=== PATIENT | male | born 1940 | race Native Hawaiian/Other Pacific Islander ===

== ENCOUNTER 2017-11-08 09:36 | Outpatient (CLI) | payer OTHER ==
[~2017-11-08 09:36] MED LIST: ARIP15TA2 OR; CLON0.5T36 PO; LAMICTAL200 MG OR; LORCET 5-325 MG1 TAB PO; LUVOX CR100 MG OR; METF500T PO; PANT40TA PO; PRISTIQ100 MG OR; TRAZ100T OR
== END 2017-11-08 19:43 | disposition home or self-care (01) ==
LOC: RAD 09:36
DX: J18.9 Pneumonia, unspecified organism (principal)

== ENCOUNTER 2018-09-26 03:08 | Outpatient (CLI) | payer OTHER | END 2018-09-26 03:15 | disposition short-term general hospital (02) | LOC: AMB 03:08 | DX: M25.561 Pain in right knee (principal); T79.A21A Traumatic compartment syndrome of right lower extremity, initial encounter; R22.41 Localized swelling, mass and lump, right lower limb; W18.39XA Other fall on same level, initial encounter; Y93.89 Activity, other specified; Y92.018 Other place in single-family (private) house as the place of occurrence of the external cause | CPT/HCPCS: A0425; A0427 ==

== ENCOUNTER 2018-09-26 03:21 | Emergency (ER) | payer OTHER ==
[~2018-09-26] VITALS: Ht 182.9 cm; Wt 124.7 kg
[2018-09-26 03:38] VITALS: TEMP 97.8
[2018-09-26 03:42] LABS: PLATELET COUNT 183 K/uL (142-355)
[2018-09-26 03:50] LABS: POTASSIUM 3.8 mmol/L (3.6-5.2)
[2018-09-26 04:03] LABS: PARTIAL THROMBOPLASTIN TIME 25.5 SECONDS (24.5-33.6)
[2018-09-26 04:16] VITALS: BP 111/64
== END 2018-09-26 04:16 | disposition short-term general hospital (02) ==
LOC: ED 03:21
PROVIDERS: Emergency Medicine Emergency Medical Services
DX: T79.A21A Traumatic compartment syndrome of right lower extremity, initial encounter (principal); W18.39XA Other fall on same level, initial encounter; Y92.89 Other specified places as the place of occurrence of the external cause; I44.5 Left posterior fascicular block
CPT/HCPCS: 80053; 85027; 85610; 85730; 93005; 96360; 96375; 99285; J1170

== ENCOUNTER 2018-10-03 11:30 | Inpatient (IN) | payer OTHER ==
[~2018-10-03] VITALS: Ht 180.3 cm; Wt 110.4 kg
[2018-10-03 16:00] VITALS: BP 137/52; TEMP 98
[2018-10-03 16:47] VITALS: BP 137/52; TEMP 98; Ht 180.3 cm; Wt 110.4 kg
[2018-10-03 17:10] LABS: PLATELET COUNT 329 K/uL (142-355)
[2018-10-03 17:57] LABS: POTASSIUM 4.2 mmol/L (3.6-5.2)
[2018-10-03 20:00] VITALS: BP 150/62; TEMP 98.4
[2018-10-04 08:00] VITALS: BP 152/77; TEMP 98.1
[2018-10-04 20:00] VITALS: BP 128/59; TEMP 97.7
[2018-10-05 08:00] VITALS: BP 155/67; TEMP 97.7
[2018-10-05 20:00] VITALS: BP 107/48; TEMP 98.5
[2018-10-06 08:00] VITALS: BP 136/56; TEMP 97.7
[2018-10-06 20:00] VITALS: BP 120/52; TEMP 97.8
[2018-10-07 08:00] VITALS: BP 145/62; TEMP 98.1
[2018-10-07 20:00] VITALS: BP 114/54; TEMP 98.3
[2018-10-08 08:00] VITALS: BP 153/57; TEMP 98.1
[2018-10-08 20:00] VITALS: BP 125/51; TEMP 97.7
[2018-10-09 08:00] VITALS: BP 133/65; TEMP 98.2
[2018-10-09 20:00] VITALS: BP 129/59; TEMP 98.4
[2018-10-10 08:00] VITALS: BP 151/73; TEMP 97.8
[2018-10-10 20:00] VITALS: BP 133/60; TEMP 98.2
[2018-10-11 08:13] VITALS: BP 130/72; TEMP 97.8
[2018-10-11 20:00] VITALS: BP 116/43; TEMP 97.7
[2018-10-12 08:00] VITALS: BP 133/71; TEMP 98.1
[2018-10-12 20:05] VITALS: BP 125/60; TEMP 98
[2018-10-13 08:09] VITALS: BP 143/60; TEMP 98.1
[2018-10-13 08:48] LABS: PLATELET COUNT 392 K/uL (142-355)
[2018-10-13 08:57] LABS: POTASSIUM 3.8 mmol/L (3.6-5.2)
[2018-10-13 20:00] VITALS: BP 149/65; TEMP 97.8
[2018-10-14 08:00] VITALS: BP 121/61; TEMP 97.6
[2018-10-14 20:00] VITALS: BP 125/66; TEMP 98.1
[2018-10-15 08:00] VITALS: BP 142/82; TEMP 97.7
[2018-10-15 19:54] VITALS: BP 154/61; TEMP 97.8
[2018-10-16 08:00] VITALS: BP 138/59; TEMP 98.2
[2018-10-16 19:56] VITALS: BP 154/58; TEMP 98.1
[2018-10-17 07:00] VITALS: BP 138/65; TEMP 98
[2018-10-17 20:00] VITALS: BP 122/59; TEMP 98.1
[2018-10-18 08:00] VITALS: BP 125/68; TEMP 97.8
[2018-10-18 19:51] VITALS: BP 128/54; TEMP 99.7
[2018-10-19 08:00] VITALS: BP 144/70; TEMP 97.5
== END 2018-10-19 11:20 | disposition home health service (06) | DRG 556 ==
LOC: MED/SURG 11:30
PROVIDERS: Family Medicine; ADMIT Internal Medicine
DX: M62.81 Muscle weakness (generalized) (principal); E66.01 Morbid (severe) obesity due to excess calories; G47.33 Obstructive sleep apnea (adult) (pediatric); E11.9 Type 2 diabetes mellitus without complications; F32.89 Other specified depressive episodes; I73.89 Other specified peripheral vascular diseases; I50.9 Heart failure, unspecified; R62.7 Adult failure to thrive; R26.89 Other abnormalities of gait and mobility
CPT/HCPCS: 36415; 80053; 80061; 81000; 83880; 85027; 85379; 85610; 85730; 87081; 93005; J1650; Q9963

== ENCOUNTER 2018-10-13 08:00 | Outpatient (CLI) | payer OTHER | END 2018-10-13 16:00 | disposition home or self-care (01) | LOC: CT 08:00 | DX: R79.89 Other specified abnormal findings of blood chemistry (principal) ==

== ENCOUNTER 2018-11-14 08:25 | Outpatient (CLI) | payer OTHER | END 2018-11-14 19:44 | disposition home or self-care (01) | LOC: NM 08:25 | DX: I50.89 Other heart failure (principal); I73.89 Other specified peripheral vascular diseases; E11.9 Type 2 diabetes mellitus without complications | CPT/HCPCS: A9500; J2785 ==

== ENCOUNTER 2018-12-09 11:08 | Outpatient (CLI) | payer OTHER ==
[2018-12-09 11:24] LABS: PLATELET COUNT 256 K/uL (142-355)
[2018-12-09 12:29] LABS: POTASSIUM 3.6 mmol/L (3.6-5.2)
== END 2018-12-09 19:27 | disposition home or self-care (01) ==
LOC: LAB 11:08
PROVIDERS: Internal Medicine Cardiovascular Disease
DX: I11.0 Hypertensive heart disease with heart failure (principal); I73.89 Other specified peripheral vascular diseases; I25.10 Atherosclerotic heart disease of native coronary artery without angina pectoris; R06.09 Other forms of dyspnea; E11.9 Type 2 diabetes mellitus without complications
CPT/HCPCS: 80053; 83036; 83880; 85027

== ENCOUNTER 2019-01-02 21:51 | Inpatient (IN) | payer OTHER ==
[~2019-01-02] VITALS: Ht 182.9 cm; Wt 109.9 kg
[2019-01-02 21:56] VITALS: BP 133/76; TEMP 97.8
[2019-01-02 23:53] LABS: PLATELET COUNT 280 K/uL (142-355)
[2019-01-02 23:55] LABS: POTASSIUM 3.6 mmol/L (3.6-5.2)
[2019-01-03] VITALS (8 sets, daily range): BP systolic 112–144; BP diastolic 46–74; TEMP 97.7–98.7; Ht 182.9 cm; Wt 109.9 kg
[2019-01-03] MEDS ORDERED: CLON0.5T36 PO (13:14)
[2019-01-03] MEDS ORDERED: LIPITOR20 MG PO (13:18)
[2019-01-03] MEDS ORDERED: METF500T PO (13:18)
[2019-01-03] MEDS ORDERED: BUSPIRONE10 MG PO (13:18)
[2019-01-03] MEDS ORDERED: FURO20TA67 PO (13:20)
[2019-01-03] MEDS ORDERED: LUMIGAN0.01 % OPTH (13:22)
[2019-01-04 04:00] VITALS: BP 126/62; TEMP 97.9
[2019-01-04 05:15] LABS: PLATELET COUNT 214 K/uL (142-355)
[2019-01-04 08:00] VITALS: BP 141/75; TEMP 98.2
[2019-01-04 12:00] VITALS: BP 123/62; TEMP 97.5
[2019-01-04 16:00] VITALS: BP 123/56; TEMP 98.6
[2019-01-04 20:00] VITALS: BP 123/55; TEMP 98.1
[2019-01-05] VITALS (7 sets, daily range): BP systolic 108–145; BP diastolic 54–70; TEMP 97.3–98.4
[2019-01-06 04:00] VITALS: BP 133/71; TEMP 98.2
[2019-01-06 08:00] VITALS: BP 143/50; TEMP 98.7
[2019-01-06 08:20] LABS: PLATELET COUNT 250 K/uL (142-355)
[2019-01-06 08:21] LABS: POTASSIUM 3.9 mmol/L (3.6-5.2)
[2019-01-06 12:00] VITALS: BP 117/64; TEMP 98.4
[2019-01-06 16:00] VITALS: BP 118/68; TEMP 97.7
[2019-01-06 20:00] VITALS: BP 118/66; TEMP 98.1
[2019-01-07] VITALS: BP 108/68; TEMP 97.7
[2019-01-07 04:00] VITALS: BP 100/67; TEMP 98.3
[2019-01-07 08:00] VITALS: BP 141/72; TEMP 98.1
[2019-01-07 12:00] VITALS: BP 126/66; TEMP 97.9
== END 2019-01-07 09:40 | disposition swing bed (61) | DRG 690 ==
LOC: ED 21:51 → MED/SURG 01-03 02:10
PROVIDERS: Emergency Medicine Emergency Medical Services; ADMIT Family Medicine
DX: N39.0 Urinary tract infection, site not specified (principal); R53.1 Weakness; R53.81 Other malaise; R41.0 Disorientation, unspecified; R41.81 Age-related cognitive decline; I10 Essential (primary) hypertension; E11.9 Type 2 diabetes mellitus without complications; I50.9 Heart failure, unspecified; R26.89 Other abnormalities of gait and mobility; R10.32 Left lower quadrant pain; B96.20 Unspecified Escherichia coli [E. coli] as the cause of diseases classified elsewhere; R29.6 Repeated falls; Z96.651 Presence of right artificial knee joint
CPT/HCPCS: 36415; 80053; 81000; 82948; 85027; 87077; 87086; 87088; 87186; 96365; 96367; 99283; J0744; J1020; J2001

== ENCOUNTER 2019-01-07 09:40 | Inpatient (IN) | payer OTHER ==
[~2019-01-07] VITALS: Ht 180.3 cm; Wt 107.8 kg
[~2019-01-07 09:40] MED LIST changes: +BUSPIRONE10 MG PO; +FURO20TA67 PO; +LIPITOR20 MG PO; +LUMIGAN0.01 % OPTH
[2019-01-07 16:00] VITALS: BP 138/60; TEMP 99.2
[2019-01-07 19:54] VITALS: BP 126/66; TEMP 97.9; Ht 180.3 cm; Wt 107.8 kg
[2019-01-07 20:00] VITALS: BP 119/62; TEMP 97.8
[2019-01-08 08:00] VITALS: BP 143/85; TEMP 97.6
[2019-01-08 20:00] VITALS: BP 111/63; TEMP 97.6
[2019-01-09 19:44] VITALS: BP 106/65; TEMP 98.2
[2019-01-10 08:00] VITALS: BP 128/78; TEMP 97.5
[2019-01-10 20:00] VITALS: BP 114/66; TEMP 98.3
[2019-01-11 08:00] VITALS: BP 103/58; TEMP 97.6
[2019-01-11 20:00] VITALS: BP 126/76; TEMP 97.8
[2019-01-12 08:00] VITALS: BP 137/74; TEMP 97.8
[2019-01-12 20:00] VITALS: BP 116/63; TEMP 97.9
[2019-01-13 08:00] VITALS: BP 123/66; TEMP 97.7
[2019-01-13 20:00] VITALS: BP 107/62; TEMP 97.7
[2019-01-14 08:00] VITALS: BP 142/67; TEMP 98.4
[2019-01-14 17:23] LABS: PLATELET COUNT 367 K/uL (142-355)
[2019-01-14 20:00] VITALS: BP 117/67; TEMP 98
[2019-01-15 08:00] VITALS: BP 118/67; TEMP 97.4
[2019-01-15 20:00] VITALS: BP 113/54; TEMP 98.5
[2019-01-16 08:00] VITALS: BP 115/67; TEMP 97.4
[2019-01-16] MEDS ORDERED: BLOOMIS59 PO (16:45)
== END 2019-01-16 19:25 | disposition short-term general hospital (02) | DRG 948 ==
LOC: MED/SURG 09:40
PROVIDERS: Internal Medicine; ADMIT Family Medicine
DX: R53.1 Weakness (principal); M00.9 Pyogenic arthritis, unspecified; N39.0 Urinary tract infection, site not specified; R62.7 Adult failure to thrive; R26.89 Other abnormalities of gait and mobility; I50.9 Heart failure, unspecified; E11.9 Type 2 diabetes mellitus without complications; E78.49 Other hyperlipidemia; K21.9 Gastro-esophageal reflux disease without esophagitis; H40.89 Other specified glaucoma
CPT/HCPCS: 85027; 85651; 86140; 87081; G0283-GP; J1815

== ENCOUNTER 2019-01-21 15:15 | Inpatient (IN) | payer OTHER ==
[~2019-01-21] VITALS: Ht 180.3 cm; Wt 102.2 kg
[~2019-01-21 15:15] MED LIST changes: +BLOOMIS59 PO
[2019-01-21 18:48] VITALS: BP 120/73; TEMP 97.5; Ht 180.3 cm; Wt 102.2 kg
[2019-01-21 19:03] LABS: POTASSIUM 4.2 mmol/L (3.6-5.2)
[2019-01-21] MEDS ORDERED: METO25TA4 PO (19:48)
[2019-01-21 20:00] VITALS: BP 112/70; TEMP 97.4
[2019-01-21 21:12] LABS: PLATELET COUNT 302 K/uL (142-355)
[2019-01-22 08:00] VITALS: BP 100/61; TEMP 97.9
[2019-01-22 19:49] VITALS: BP 98/54; TEMP 98.5
[2019-01-23 08:24] VITALS: BP 111/62; TEMP 97.9
[2019-01-23 20:00] VITALS: BP 104/53; TEMP 97.9
[2019-01-24 08:00] VITALS: BP 105/63; TEMP 98
[2019-01-24 20:07] VITALS: BP 115/64; TEMP 98.1
[2019-01-25 08:00] VITALS: BP 100/63; TEMP 97.6
[2019-01-25 20:00] VITALS: BP 113/54; TEMP 97.8
[2019-01-26 08:00] VITALS: BP 109/63; TEMP 98.3
[2019-01-26 20:00] VITALS: BP 122/63; TEMP 98
[2019-01-27 08:00] VITALS: BP 108/66; TEMP 98.5
[2019-01-27 19:45] VITALS: BP 97/63; TEMP 97.3
[2019-01-28 08:00] VITALS: BP 128/65; TEMP 98.5
[2019-01-28 15:31] LABS: POTASSIUM 3.5 mmol/L (3.6-5.2)
[2019-01-28 20:15] VITALS: BP 115/63; TEMP 97.4
[2019-01-29 08:00] VITALS: BP 113/61; TEMP 97.7
[2019-01-29 20:00] VITALS: BP 120/69; TEMP 97.7
[2019-01-30 08:00] VITALS: BP 103/63; TEMP 98
[2019-01-30 20:00] VITALS: BP 117/68; TEMP 98.3
[2019-01-31 07:17] VITALS: BP 170/115
[2019-01-31 08:00] VITALS: BP 130/62; TEMP 98.3
[2019-01-31 19:33] VITALS: BP 110/60; TEMP 97.8
[2019-02-01 08:26] VITALS: BP 116/77; TEMP 98.3
[2019-02-01 20:00] VITALS: BP 96/59; TEMP 98.1
[2019-02-02 08:00] VITALS: BP 112/68; TEMP 98.5
[2019-02-02 19:54] VITALS: BP 114/64; TEMP 98.2
[2019-02-03 08:00] VITALS: BP 136/77; TEMP 98.5
[2019-02-03 20:00] VITALS: BP 116/55; TEMP 98.5
[2019-02-04 08:00] VITALS: BP 108/64; TEMP 98.7
[2019-02-04 20:00] VITALS: BP 123/59; TEMP 98.9
[2019-02-05 08:00] VITALS: BP 124/72; TEMP 98.2
[2019-02-05 20:00] VITALS: BP 107/69; TEMP 98.4
[2019-02-06 08:00] VITALS: BP 125/78; TEMP 97.9
[2019-02-06 20:00] VITALS: BP 105/53; TEMP 98.4
[2019-02-07 08:00] VITALS: BP 95/65; TEMP 98.1
[2019-02-07 20:00] VITALS: BP 112/56; TEMP 98
[2019-02-08 08:00] VITALS: BP 110/61; TEMP 98.3
== END 2019-02-08 10:30 | disposition home health service (06) | DRG 947 ==
LOC: MED/SURG 15:15
PROVIDERS: Internal Medicine; ADMIT Family Medicine
DX: R53.1 Weakness (principal); S72.112A Displaced fracture of greater trochanter of left femur, initial encounter for closed fracture; R26.89 Other abnormalities of gait and mobility; R62.7 Adult failure to thrive; E11.9 Type 2 diabetes mellitus without complications; G20 Parkinson's disease; Z91.81 History of falling; F41.8 Other specified anxiety disorders; G47.33 Obstructive sleep apnea (adult) (pediatric); I73.89 Other specified peripheral vascular diseases; M15.8 Other polyosteoarthritis; E78.49 Other hyperlipidemia
CPT/HCPCS: 36415; 80048; 80053; 81000; 85027; 87081; J1815

== ENCOUNTER 2019-02-25 12:52 | Outpatient (CLI) | payer OTHER ==
[~2019-02-25 12:52] MED LIST changes: +FLUV100T PO; -LAMICTAL200 MG OR; +LAMICTAL200 MG PO; -LUVOX CR100 MG OR; +METO25TA4 PO
[2019-02-25] MEDS ORDERED: BUSPIRONE10 MG PO (13:25)
[2019-02-25] MEDS ORDERED: PROBIOTI2 PO (13:26)
== END 2019-02-25 12:59 | disposition short-term general hospital (02) ==
LOC: AMB 12:52
DX: R51 Headache (principal); I48.91 Unspecified atrial fibrillation; R94.31 Abnormal electrocardiogram [ECG] [EKG]; W19.XXXA Unspecified fall, initial encounter; Y92.89 Other specified places as the place of occurrence of the external cause
CPT/HCPCS: A0425; A0427

== ENCOUNTER 2019-02-25 13:00 | Inpatient (IN) | payer OTHER ==
[2019-02-25] VITALS (11 sets, daily range): BP systolic 105–138; BP diastolic 48–83; TEMP 98.3–99.1; Ht 180.3 cm; Wt 104.4 kg
[~2019-02-25] VITALS: Ht 180.3 cm; Wt 104.4 kg
[2019-02-25] MEDS ORDERED: BUSPIRONE10 MG PO (13:25)
[2019-02-25] MEDS ORDERED: PROBIOTI2 PO (13:26)
[2019-02-25 14:29] LABS: PLATELET COUNT 322 K/uL (142-355)
[2019-02-25 14:40] LABS: POTASSIUM 2.9 mmol/L (3.6-5.2)
[2019-02-26] VITALS: BP 114/61; TEMP 99.7
[2019-02-26 04:00] VITALS: BP 127/58; TEMP 98.5
[2019-02-26 05:42] LABS: PLATELET COUNT 274 K/uL (142-355)
[2019-02-26 06:29] LABS: POTASSIUM 3.3 mmol/L (3.6-5.2); SODIUM 139 mmol/L (136-145)
[2019-02-26 08:27] VITALS: BP 117/53; TEMP 98.2
[2019-02-26 12:01] VITALS: BP 111/48; TEMP 98.6
[2019-02-26 16:35] VITALS: BP 101/46; TEMP 97.6
[2019-02-26 20:00] VITALS: BP 122/56; TEMP 98.8
[2019-02-27] VITALS: BP 95/42; TEMP 97.9
[2019-02-27 04:00] VITALS: BP 104/51; TEMP 98.4
[2019-02-27 05:43] LABS: PLATELET COUNT 263 K/uL (142-355)
[2019-02-27 05:51] LABS: POTASSIUM 3.3 mmol/L (3.6-5.2)
[2019-02-27 08:07] VITALS: BP 93/46; TEMP 98.2
[2019-02-27 16:28] VITALS: BP 129/56; TEMP 98.5
[2019-02-27 20:00] VITALS: BP 94/55; TEMP 98.6
[2019-02-28 00:05] VITALS: BP 113/57; TEMP 98.1
[2019-02-28 04:12] VITALS: BP 116/48; TEMP 98
[2019-02-28 08:00] VITALS: BP 123/53; TEMP 98.1
[2019-02-28 12:00] VITALS: BP 131/62; TEMP 98.3
[2019-02-28 20:00] VITALS: BP 127/50; TEMP 98.7
[2019-03-01 00:01] VITALS: BP 126/62; TEMP 98.3
[2019-03-01 04:00] VITALS: BP 142/53; TEMP 98.1
[2019-03-01 08:00] VITALS: BP 115/77; TEMP 98.2
[2019-03-01 20:01] VITALS: BP 102/45; TEMP 98.4
[2019-03-01 23:53] VITALS: BP 126/59; TEMP 98.2
[2019-03-02 03:52] VITALS: BP 135/55; TEMP 98.6
[2019-03-02 20:00] VITALS: BP 115/52; TEMP 98.7
[2019-03-03] VITALS: BP 118/40; TEMP 98.4
[2019-03-03 04:00] VITALS: BP 108/54; TEMP 98.4
[2019-03-03 08:00] VITALS: BP 119/62; TEMP 98
[2019-03-03] MEDS ORDERED: SUCRALFATE1 GM PO (15:55)
[2019-03-03] MEDS ORDERED: METF500T PO (15:55)
[2019-03-03] MEDS ORDERED: SILV1CRE TOP (15:56)
== END 2019-03-03 17:30 | disposition swing bed (61) | DRG 291 ==
LOC: ED 13:00 → MED/SURG 16:45
PROVIDERS: Family Medicine; ADMIT Family Medicine
DX: I11.0 Hypertensive heart disease with heart failure (principal); S72.112A Displaced fracture of greater trochanter of left femur, initial encounter for closed fracture; I48.20 Chronic atrial fibrillation, unspecified; I50.33 Acute on chronic diastolic (congestive) heart failure; E83.42 Hypomagnesemia; R06.89 Other abnormalities of breathing; R06.09 Other forms of dyspnea; E87.6 Hypokalemia; I73.89 Other specified peripheral vascular diseases; R26.89 Other abnormalities of gait and mobility; G47.33 Obstructive sleep apnea (adult) (pediatric); G20 Parkinson's disease; M15.8 Other polyosteoarthritis; F41.8 Other specified anxiety disorders; R62.7 Adult failure to thrive; R53.1 Weakness; E78.49 Other hyperlipidemia
CPT/HCPCS: 36415; 36600; 80053; 81000; 82550; 82805; 83735; 83880; 84484; 85027; 93005; 94760; 96374; 99284; J1815; J1940; J3475; J3490

== ENCOUNTER 2019-03-03 17:30 | Inpatient (IN) | payer OTHER ==
[~2019-03-03] VITALS: Ht 180.3 cm; Wt 100.0 kg
[~2019-03-03 17:30] MED LIST changes: +PROBIOTI2 PO; +SILV1CRE TOP; +SUCRALFATE1 GM PO
[2019-03-03 19:39] LABS: PLATELET COUNT 334 K/uL (142-355)
[2019-03-03 19:54] VITALS: BP 110/59; TEMP 98.3; Ht 180.3 cm; Wt 100.0 kg
[2019-03-03 19:58] LABS: POTASSIUM 4.1 mmol/L (3.6-5.2)
[2019-03-03 20:00] VITALS: BP 108/49; TEMP 98.5
[2019-03-04 09:21] VITALS: BP 125/58; TEMP 97.8
[2019-03-04 20:00] VITALS: BP 138/63; TEMP 97.7
[2019-03-05 08:21] VITALS: BP 106/51; TEMP 98.3
[2019-03-05 20:00] VITALS: BP 104/45; TEMP 98.3
[2019-03-06 08:00] VITALS: BP 126/93; TEMP 98.3
[2019-03-06 20:06] VITALS: BP 96/44; TEMP 98.4
[2019-03-07 20:00] VITALS: BP 104/54; TEMP 98.4
[2019-03-08 08:07] VITALS: BP 97/54; TEMP 98.4
[2019-03-08 20:00] VITALS: BP 104/54; TEMP 98.1
[2019-03-09 08:07] VITALS: BP 137/83; TEMP 98.4
[2019-03-09 20:00] VITALS: BP 91/45; TEMP 97.8
[2019-03-10 08:27] VITALS: BP 106/53; TEMP 98
[2019-03-10 20:00] VITALS: BP 108/56; TEMP 97.6
[2019-03-11 08:00] VITALS: BP 103/52; TEMP 98.3
[2019-03-11 20:10] VITALS: BP 103/54; TEMP 98.2
[2019-03-12 08:00] VITALS: BP 90/56; TEMP 98.4
[2019-03-12 20:00] VITALS: BP 123/69; TEMP 98.1
[2019-03-13 08:00] VITALS: BP 111/60; TEMP 97.8
[2019-03-13 20:00] VITALS: BP 103/59; TEMP 98.3
[2019-03-14 08:00] VITALS: BP 113/62; TEMP 97.8
[2019-03-14 20:11] VITALS: BP 119/58; TEMP 97.8
[2019-03-15 08:00] VITALS: BP 118/74; TEMP 98
[2019-03-15 19:56] VITALS: BP 111/64; TEMP 98.3
[2019-03-16 08:00] VITALS: BP 99/56; TEMP 98.3
[2019-03-16 20:26] VITALS: BP 107/58; TEMP 98
[2019-03-17 08:22] VITALS: BP 125/53; TEMP 98.6
[2019-03-17 20:00] VITALS: BP 109/57; TEMP 98.1
[2019-03-18 08:00] VITALS: BP 115/58; TEMP 98.3
[2019-03-18 20:00] VITALS: BP 108/48; TEMP 98.5
[2019-03-19 08:00] VITALS: BP 107/73; TEMP 98
[2019-03-19 20:00] VITALS: BP 122/59; TEMP 97.9
[2019-03-20 08:00] VITALS: BP 121/67; TEMP 98.1
[2019-03-20 20:00] VITALS: BP 118/64; TEMP 98.4
[2019-03-21 08:00] VITALS: BP 116/62; TEMP 97.9
[2019-03-21 20:00] VITALS: BP 100/50; BP 125/59; TEMP 97.1; TEMP 97.8
[2019-03-22 08:00] VITALS: BP 106/46; TEMP 98.6
[2019-03-22 20:00] VITALS: BP 100/50; TEMP 97.1
[2019-03-23 08:00] VITALS: BP 102/50; TEMP 97.9
[2019-03-23 20:00] VITALS: BP 135/69; TEMP 98.3
[2019-03-24 08:09] VITALS: BP 108/53; TEMP 98.2
[2019-03-24 20:24] VITALS: BP 105/53; TEMP 98.4
== END 2019-03-25 12:47 | disposition home or self-care (01) | DRG 555 ==
LOC: MED/SURG 17:30
PROVIDERS: ADMIT Internal Medicine
DX: M62.81 Muscle weakness (generalized) (principal); S72.112A Displaced fracture of greater trochanter of left femur, initial encounter for closed fracture; R26.81 Unsteadiness on feet; R62.7 Adult failure to thrive; Z91.81 History of falling; E11.9 Type 2 diabetes mellitus without complications; I10 Essential (primary) hypertension; E78.49 Other hyperlipidemia; K21.9 Gastro-esophageal reflux disease without esophagitis; G20 Parkinson's disease; I73.89 Other specified peripheral vascular diseases; G47.33 Obstructive sleep apnea (adult) (pediatric); E66.8 Other obesity; M15.8 Other polyosteoarthritis
CPT/HCPCS: 80053; 81000; 85027; 87015; 87045; 87081; 87324; 87449; 87899

== ENCOUNTER 2020-03-04 11:07 | Outpatient (CLI) | payer OTHER ==
[2020-03-04 11:20] LABS: PLATELET COUNT 381 K/uL (142-355)
[2020-03-04 11:33] LABS: POTASSIUM 4.3 mmol/L (3.6-5.2)
== END 2020-03-04 21:13 | disposition home or self-care (01) ==
LOC: LAB 11:07
PROVIDERS: ATTEND Nurse Practitioner
DX: E11.42 Type 2 diabetes mellitus with diabetic polyneuropathy (principal); E78.49 Other hyperlipidemia; Z79.899 Other long term (current) drug therapy
CPT/HCPCS: 80053; 80061; 83036; 85027

== ENCOUNTER 2020-03-31 00:52 | Emergency (ER) | payer OTHER ==
[~2020-03-31] VITALS: Ht 180.3 cm; Wt 99.8 kg
[2020-03-31 02:50] VITALS: BP 126/55; TEMP 98.2
== END 2020-03-31 02:50 | disposition home or self-care (01) ==
LOC: ED 00:52
PROC: 0HQ0XZZ Repair Scalp Skin, External Approach (ICD-10-PCS; principal; 2020-03-31)
DX: S01.01XA Laceration without foreign body of scalp, initial encounter (principal); W05.0XXA Fall from non-moving wheelchair, initial encounter; Y93.F1 Activity, caregiving, bathing; Y92.89 Other specified places as the place of occurrence of the external cause
CPT/HCPCS: 90471; 90715; 99283

== ENCOUNTER 2020-04-05 16:23 | Outpatient (CLI) | payer OTHER | END 2020-04-05 22:47 | disposition home or self-care (01) | LOC: RAD 16:23 | PROVIDERS: ATTEND Nurse Practitioner Family | DX: R06.02 Shortness of breath (principal); R05 Cough ==

== ENCOUNTER 2020-07-09 10:31 | Outpatient (CLI) | payer OTHER ==
[2020-07-10] MEDS ORDERED: METFORMIN HYDR750 MG PO (21:57)
== END 2020-07-09 22:40 | disposition home or self-care (01) ==
LOC: LAB 10:31
PROVIDERS: ATTEND Nurse Practitioner
DX: R53.83 Other fatigue (principal); R43.2 Parageusia; E55.9 Vitamin D deficiency, unspecified; E53.8 Deficiency of other specified B group vitamins
CPT/HCPCS: 82306; 82525; 82607; 83735; 84630

== ENCOUNTER 2020-07-10 20:32 | Inpatient (IN) | payer OTHER ==
[2020-07-10] VITALS (7 sets, daily range): BP systolic 102–126; BP diastolic 58–74; TEMP 99.1
[~2020-07-10] VITALS: Ht 180.3 cm; Wt 97.6 kg
[2020-07-10 21:43] LABS: PLATELET COUNT 333 K/uL (142-355)
[2020-07-10 21:50] LABS: POTASSIUM 3.8 mmol/L (3.6-5.2); SODIUM 131 mmol/L (136-145)
[2020-07-10] MEDS ORDERED: METFORMIN HYDR750 MG PO (21:57)
[2020-07-11] VITALS (8 sets, daily range): BP systolic 110–134; BP diastolic 58–67; TEMP 98.1–99.4; Ht 180.3 cm; Wt 97.6 kg
--- NOTE | 2020-07-11 00:45 | NUR ---
PATIENT ADMITTED TO ROOM# 1108 VIA STRETCHER FROM THE ER. PATIENT ORIENTED TO ROOM AND CALL SYSTEM AND VERBALIZES UNDERSTANDING OF ALL INFO GIVEN. PATIENT IS ALERT AND ORIENTED X 3, AND STATES HE NORMALLY AMBULATES AT HOME WITH A CANE OR WALKER. PATIENT IS EXTREMELY WEAK AT THIS TIME AND UNABLE TO AMBULATE AT THIS TIME. ER PLACED A 14 UGANDAN KAN CATHETER AND PATIENT IS TOLERATING CATHETER WELL AND STATES HE UNDERSTANDS HE IS TO WEAK TO GET OOB ON HIS OWN AND VERBALIZES HE WILL CALL FOR ASSISTANCE. CALL LIGHT WITHIN REACH. WILL CONTINUE TO MONITOR. PATIENTS DAUGHTER JOHN IS HIS CONTACT AND HER # IS [phone].
[2020-07-11 07:16] LABS: PLATELET COUNT 284 K/uL (142-355)
[2020-07-11 07:54] LABS: POTASSIUM 3.7 mmol/L (3.6-5.2)
--- NOTE | 2020-07-11 09:50 | NUR ---
REC'D CALL FROM [facility] IN LAB WHO REPORTS PT'S BLOOD CULTURES X2 PRELIMINARIES ARE BOTH POSITIVE.
--- NOTE | 2020-07-11 13:51 | NUR ---
NURSE CALLED RT TO ASSESS PT. PT WHEEZING IN UPPER RIGHT LOBE. RT ADMINISTERED NEB AT THIS TIME.
--- NOTE | 2020-07-11 15:31 | NUR ---
REPORTED TO DR. CRUZ PT'S LUNG SOUNDS AND WHEEZING, DR. CRUZ ORDERS TO PLACE PT ON O2 AT THIS TIME AND CONTINUE TO MONITOR PT'S WORK OF BREATHING AND LUNG SOUNDS, AND O2 SAT, NO FURTHER ORDERS AT THIS TIME
--- NOTE | 2020-07-11 15:40 | NUR ---
OXYGEN PLACED ON PT AT THIS TIME AT 2L NC, NONLABORED BREATHING NOTED, NAD NOTED, WILL CONTINUE TO MONITOR
--- NOTE | 2020-07-11 15:46 | NUR ---
PT NOTED TO BE LAYING IN BED TALKING.
--- NOTE | 2020-07-11 16:32 | NUR ---
RT ASSESSED PT. UPON ARRIVAL IN PT ROOM, PT WAS TALKING. PT STATES HE CAN BREATH EASIER FROM NEB TX EARLIER. NO INCREASED WOB AT THIS TIME. BBS FINDING ARE: RUL-WHEEZE, ALL OTHER LUNG DIANE WERE CLEAR/DIMINISHED. PT IS ON 2LPM NC. SPO2 AT 95% HR: 105-118. PT IS NOTED WITH A HEART HISTORY. PRN NEB OF ALBUTEROL/ATROVENT NOT GIVEN AT THIS TIME. WILL CONTINUE TO MONITOR.
--- NOTE | 2020-07-11 18:21 | NUR ---
PT NOTED TO HAVE 14FR KAN IN PLACE WITH 600 CC MYRTLE COLOR URINE OUT THIS SHIFT WITH 1112 CC ORAL INTAKE AND [address] CRUZ NOTIFIED.
--- NOTE | 2020-07-11 18:28 | NUR ---
ORDERS REC'D TO JUST MONITOR PT AT THIS TIME AND THROUGH THE NIGHT WITH THE IVF GOING AT 75ML/HR
--- NOTE | 2020-07-11 20:10 | NUR ---
PT AWAKE LAYING IN BED WITH NO ACUTE DISTRESS NOTED, RESP RATE NONLABORED, O2 AT 2LPM VIA NC, IV INTACT TO L FA WITH NS INFUSING AT 75ML/HR, TELEMETRY IN USE WITH RATE OF 100, DENIES ANY NEEDS AT THIS TIME, TALKATIVE WITH ENVIRONMENTAL TECHNICAL OFFICERLUCIUS DRAINING TO BEDSIDE. ENCOURAGED TO CALL NEEED, WILL MONITOR, RAILS UP, BED IN LOW POSITION, CALL LIGHT IN REACH.
--- NOTE | 2020-07-11 21:16 | NUR ---
SPOKE WITH DR. TAMAYO IN ER ABOUT PT'S BREATHING BEING DIFFERENT FROM ADMIT(MECHANICAL TECH NURSE THAT ADMITTED PT WORKING WITH PLUG STITCHER SHANE), WET COUGH, LUNGS DIMINISHED WITH WHEEZING NOTED. INFORMED DR THAT FLUID HAS BEEN INFUSING AT 75ML/HR AND ON DAY SHIFT PT INTAKE 2000 OUTPUT 600 VIA KAN. NEW ORDER FOR LASIX 40MG SLOW IVP X 1 DOSE NOW T.O. R&V
--- NOTE | 2020-07-11 22:50 | NUR ---
NOTE APPROX 300-400ML URINE OUTPUT IN KAN CATH BAG SINCE LASIX GIVEN. WILL MONITOR CLOSELY.
[2020-07-12] VITALS (7 sets, daily range): BP systolic 100–131; BP diastolic 54–65; TEMP 97.5–98.6
--- NOTE | 2020-07-12 00:06 | NUR ---
PT RESTING QUIETLY IN BED WITH EYES CLOSED, NO S/S OF PAIN OR DISTRESS NOTED, RESP RATE NONLABORED, O2 AT 2LPM VIA NC, TELEMETRY IN USE WITH RATE OF 86, IV INTACT WITH FLUID ONGOING, KAN PATENT DRAINING TO BEDSIDE, WILL MONITOR CLOSELY, RAILS UP, BED IN LOW POSITION, CALL LIGHT IN REACH.
--- NOTE | 2020-07-12 03:20 | NUR ---
PT RESTING IN BED WITH EYES CLOSED, NO S/S OF PAIN OR DISTRESS NOTED, RESP RATE NONLABORED, O2 IN USE VIA NC, TELEMETRY IN USE WITH RATE 80s-90s, KAN PATENT DRAINING TO BEDSIDE, IV INTACT TO L FA WITH NS ONGOING. NOTE PT HAS TREMORS OF HANDS AT TIMES WHEN AWAKE BUT ALSO NOTED MOVEMENTS OF MOUTH AND FEET WHILE PT APPEARS TO BE SLEEPING(HX PARKINSON'S). WILL MONITOR CLOSELY, RAILS UP X3, BED IN LOW POSITION, CALL LIGHT IN REACH.
--- NOTE | 2020-07-12 04:45 | NUR ---
PT AWAKE CALLED DIE BARBER LIGHT WANTING TO ASK HIS NURSE A QUESTION. ENTERED TO FIND PT ALERT AND ORIENTED SITTING UP IN BED WITH NO ACUTE DISTRESS NOTED, IV INTACT, KAN PATENT DRAINING TO BEDSIDE, TELEMETRY IN USE. PT WANTED TO KNOW IF EDUCATIONAL PSYCHOLOGY TEACHER GOT HIM ANYTHING FOR SLEEP LAST NIGHT(OTHER THAN NORMAL HOME MEDS), INFORMED PT THAT EDUCATIONAL PSYCHOLOGY TEACHER RETURNED TO CHECK ON PT AFTER HE ASKED FOR SOMETHING EXTRA TO HELP HIM SLEEP AND PT WAS RESTING WITH EYES CLOSED. PT TALKATIVE WITH EDUCATIONAL PSYCHOLOGY TEACHER AND INFORMED PT THAT HE HAS SLEEP 4-5 HOURS DURING NIGHT PT REPLIES THAT HE THOUGHT HE ONLY SLEPT 3 HOURS. TALKS ABOUT R SIDE OF HIS MOUTH BOTHERING HIM BUT WHEN EDUCATIONAL PSYCHOLOGY TEACHER OFFERED TO BRING PT TYLENOL PRN PT STATES HE WILL NEED IT IN A FEW HOURS. ENCOURAGED PT TO CALL FOR PRN PAIN MEDICATION, PT ACKNOWLEDGES UNDERSTANDING. RAILS UP X3, BED IN LOW POSITION, CALL LIGHT IN REACH.
[2020-07-12 05:26] LABS: PLATELET COUNT 275 K/uL (142-355)
[2020-07-12 05:28] LABS: POTASSIUM 3.1 mmol/L (3.6-5.2)
--- NOTE | 2020-07-12 06:35 | NUR ---
RESTING WITH EYES CLOSED, NO S/S OF PAIN OR DISTRESS NOTED, WILL MONITOR CLOSELY, RAILS UP X3, BED IN LOW POSITION, CALL LIGHT IN REACH.
--- NOTE | 2020-07-12 23:35 | NUR ---
PATIENT HAD A CHANGE IN HIS HEART RHYTHEM. PATIENT DENIED ANY PAIN IN HIS CHEST OR ARM OR ABDOMEN. PATIENT DENIED ANY NAUSEA. I COPPIED THE STRIP AND WENT TO SPEAK TO THE ER DR TAMAYO. THE DR SAID, "ITS A -FIB WITH A FEW PVCS." AND "JUST TO MONITOR HIM." MD DID NOT ORDER ANY ADDITIONAL TESTS OR LAB WORK AT THIS TIME.
[2020-07-13 03:58] VITALS: BP 121/66; TEMP 97.6
[2020-07-13 05:29] LABS: POTASSIUM 3.3 mmol/L (3.6-5.2)
[2020-07-13 05:39] LABS: PLATELET COUNT 295 K/uL (142-355)
[2020-07-13 08:00] VITALS: BP 120/51; TEMP 97.7
[2020-07-13 12:00] VITALS: BP 124/67; TEMP 98.6
--- NOTE | 2020-07-13 14:00 | NUR ---
ATTEMPTED TO CALL PT TO ASSIST WITH TRANSFER OF PATIENT TO CHAIR. PT DID NOT ANSWER.
--- NOTE | 2020-07-13 14:30 | NUR ---
SNAILER ATTEMPTED TO CALL PT. PT DID NOT ANSWER.
--- NOTE | 2020-07-13 15:13 | NUR ---
ATTEMPTED TO CALL PT AGAIN. WAS FORWARDED TO OUTPATIENT THERAPY. THEY SIAD THEY WOULD CALL THERAPY.
[2020-07-13 16:02] VITALS: BP 126/64; TEMP 98.8
[2020-07-13 19:32] VITALS: BP 131/65; TEMP 98.1
--- NOTE | 2020-07-13 22:15 | NUR ---
PT SITTING UP IN HIGH-FOWLERS POSITION AT THIS TIME WITH BED IN LOWEST POSITION WATCHING TV WITH SIDE RAILS UP TIMES TWO WITH 2LPM OF NC ON AND INTACT. PT EXPERIENCING BILATERAL WHEEZING TO THE UPPER TWO LOBES AT THIS TIME. REWRAPPED DRESSING ON RIGHT FOREARM SKIN TEAR AT THIS TIME AND USED NON-ADHESIVE TELFA DRESSING PADS. SUPERVISOR MONEY ROOM NOTES BILATERAL LOWER EXTEREMITY EDEMA AT THIS TIME THAT IS WARM TO TOUCH. PT SEEMS TO BE IN NO DISTRESS AT THIS TIME. NO NAD NOTED. PM MEDS ALSO GIVEN AT THIS TIME. 22 G IN THE LEFT FOREARM STARTED AT THIS TIME. IV FLUSHES WELL AND AND NO EDEMA OR ERRTHYEMA NOTED TO THE SITE.
[2020-07-13 23:39] VITALS: BP 128/70; TEMP 99.4
[2020-07-14 04:00] VITALS: BP 125/70; TEMP 97.6
[2020-07-14 05:36] LABS: PLATELET COUNT 344 K/uL (142-355)
[2020-07-14 05:48] LABS: POTASSIUM 4.1 mmol/L (3.6-5.2)
[2020-07-14 08:00] VITALS: BP 141/70; TEMP 98.6
[2020-07-14 12:00] VITALS: BP 112/63; TEMP 98.2
[2020-07-14 16:01] VITALS: BP 112/54; TEMP 98.3
[2020-07-14 20:02] VITALS: BP 133/80; TEMP 98.5
--- NOTE | 2020-07-14 22:05 | NUR ---
PATIENT RESTING QUIETLY AT THIS TIME WATCHING TV, DENIES ANY COMPLAINTS OR REQUESTS AT THIS TIME. NO ACUTE DISTRESS NOTED AT THIS TIME. CALL LIGHT WITHIN REACH. WILL CONTINUE TO MONITOR.
[2020-07-15] VITALS: BP 110/61; TEMP 99.1
--- NOTE | 2020-07-15 01:21 | NUR ---
PATIENT TURNED TO HIS LEFT SIDE FROM HIS BACK WITHOUT DIFFICULTY. PATIENT RESTING QUIETLY, NO ACUTE DISTRESS NOTED AT THIS TIME. CALL LIGHT WITHIN REACH. WILL CONTINUE TO MONITOR.
[2020-07-15 04:00] VITALS: BP 109/66; TEMP 97.8
[2020-07-15 05:23] LABS: POTASSIUM 4.2 mmol/L (3.6-5.2)
[2020-07-15 05:25] LABS: PLATELET COUNT 336 K/uL (142-355)
[2020-07-15 08:00] VITALS: BP 112/61; TEMP 98.2
--- NOTE | 2020-07-15 10:06 | NUR ---
07/15/20 0930T A/O AM MEDICATIONS GIVEN ALONG WITH GLUCERNA PT STATES HE CANNOT HARDLY EAT DUE TO HAVING SORE THROAT.INFORMED PT THAT WE TOLD OF HIS C/O OF SORE THROAT. STATED EARILER THAT HE WILL ORDER SOMETHING FOR HIM.DSY TO RT UPPER ARM REMOVED CLEANED WITH NORMAL SALINE TO LARGE SKIN TEAR BLEEDING SLIGHTY.NO ODOR NOTED.APPLIED NONSTICK TELFA PADS TO AREA WITH 4X4 THEN WRAPPED WITH ARUNA PAPER TAPE.ALSO AREA TO RT KNEE CLEANED NS RED ABRASION AREA MINIMAL AMOUNT OF BLEEDING.NO ODOR NOTED.APPLIED NONSTICK TELFA PADS WITH PAPER TAPE.SKIN TEARS ALSO TO RT LOWER LEG 2 SMALLER IN DIAMETER CLEANED NS APPLIED NONSTICK TELFA PAD AND PAPER TAPE.PT TOLERATED WELL.CC
--- NOTE | 2020-07-15 10:52 | NUR ---
07/15/20 1050 PT AWAKE ALERT PT STATED SHE DRANK GLUCERNA THIS AM.DAUGHTER PRESENT IN ROOM.CC 07/15/20 1055 NEW ORDERS RECEIVED PER .CC
--- NOTE | 2020-07-15 11:32 | NUR ---
07/15/20 1132 DAUGHTER REMAINS AT [facility] STATES TO HER FATHER LOOKS BETTER TODAY.PT TALKING ALERT SAID HE IS WEAK,PCT TURNED AND REPOSTIONED TO SIDE ALSO BATH GIVEN EARILER.CC
[2020-07-15 12:00] VITALS: BP 107/54; TEMP 97.5
--- NOTE | 2020-07-15 12:30 | NUR ---
1230 PT C/O PAIN IN RT JAW AREA WARM COMPRESS PROVIDED.CC
--- NOTE | 2020-07-15 13:29 | NUR ---
07/15/20 1325 PT GOWN CHANGED DUE TO SPILLING LIQUIDS IN BED STILL C/O OF HURTING IN RT JAW AREA NO VISIBLE AREA NOTED.PT REFUSED PAIN MEDICATION STATES HE CANNOT TAKE ANYTHING STRONGER THAN TYLENOL.APPLIED SECOND WARM COMPRESS TO AREA.CC
--- NOTE | 2020-07-15 14:05 | NUR ---
07/15/20 1405 BODY ARMOUR DRINK CARRIED TO PATIENT PER PT REQUEST DAUGHTER BROUGHT FROM HOME.CC
--- NOTE | 2020-07-15 14:10 | NUR ---
07/15/20 1410 PT RESTING IN BED WITH EYES CLOSED RESP EVEN NONLABORED PER STUDENT NURSE.CC
[2020-07-15 16:00] VITALS: BP 111/63; TEMP 97.9
--- NOTE | 2020-07-15 17:43 | NUR ---
07/15/20 1715 PT HAD LARGE BM BROWN SOFT IN TEXTURE.PHYSICAL THERAPY PRESENT IN ROOM.CC
[2020-07-15 20:00] VITALS: BP 122/56; TEMP 98.7
--- NOTE | 2020-07-15 20:00 | NUR ---
ENTERED PATIENT'S ROOM AT THIS TIME. PATIENT ALERT AND ORIENTED. NC INTACT @ 2L/MIN. ABRASION TO LEFT CHEEK COVERED WITH 4X4 GAUZE. DRESSINGS TO RIGHT FOREARM, RIGHT KNEE, AND RIGHT LOWER EXTREMITY- CLEANSED AND CHANGED TODAY. REQUESTING WARM COMPRESS FOR RIGHT-SIDED JAW PAIN AND TYLENOL FOR LOW BACK PAIN. TYLENOL 650MG GIVEN WITH PM MEDICATIONS. BLE ELEVATED ON PILLOWS. RHONCHI NOTED UPON AUSCULTATION. BED LOCKED AND IN LOWEST POSITION. CALL LIGHT WITHIN REACH.
[2020-07-16] VITALS (7 sets, daily range): BP systolic 94–128; BP diastolic 48–61; TEMP 97.4–98.2
--- NOTE | 2020-07-16 00:15 | NUR ---
NYSTATIN SWISH AND SWALLOW GIVEN. 22G TO LEFT WRIST FLUSHED WITH 10CC OF NS. NO SWELLING OR ERYTHEMA NOTED. SKIN PREP APPLIED TO BILATERAL HEELS. ENCOURAGED PATIENT TO KEEP ELEVATED. NO CONCERNS OR COMPLAINTS VOICED AT THIS TIME. CALL LIGHT WITHIN REACH.
--- NOTE | 2020-07-16 00:17 | NUR ---
PATIENT'S VANCOMYCIN TROUGH 21.8. VANCOMYCIN DOSE HELD AT THIS TIME. SPOKE WITH DARA FROM [facility]- THEY WILL ADJUST DOSAGE.
--- NOTE | 2020-07-16 03:07 | NUR ---
SAMANTHA FROM LAB CALLED TO REPORT A POSITIVE BLOOD CULTURE ON THIS PATIENT. 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
--- NOTE | 2020-07-16 03:30 | NUR ---
ADJUSTED PATIENT IN BED WITH X3 MAX ASSIST. BLE ELEVATED ON PILLOWS. NC INTACT. PATIENT REQUESTING TYLENOL. TYLENOL 650MG GIVEN. BED LOCKED AND IN LOWEST POSITION. CALL LIGHT WITHIN REACH.
[2020-07-16 05:43] LABS: PLATELET COUNT 360 K/uL (142-355)
[2020-07-16 05:53] LABS: POTASSIUM 4.1 mmol/L (3.6-5.2)
--- NOTE | 2020-07-16 06:20 | NUR ---
PATIENT RESTING QUIETLY IN BED WITH EYES CLOSED. NC INTACT. NAD NOTED. CALL LIGHT WITHIN REACH.
--- NOTE | 2020-07-16 08:02 | NUR ---
CRITICAL LAB CALLED TO FLOOR BY LIZBETH IN LAB- 2ND SET OF PT BLOOD CULTURES ARE POSITIVE.
--- NOTE | 2020-07-16 12:30 | NUR ---
OT AT BEDSIDE. PATIENT TOLERATED WELL. PATIENT COMPLAINING OF MOUTH SORES AND JAW PAIN. RADIOLOGY CALLED QUESTIONING ORDER FOR FACIAL CT. DR. WEISS TO BE CONTACTED.
--- NOTE | 2020-07-16 13:15 | NUR ---
CALLED DR. WEISS CELLPHONE AFTER ATTEMPTING TO REACH HIM IN HIS OFFICE. HE CLARIFIED ORDER FOR CT. RADIOLOGY NOTIFIED.
--- NOTE | 2020-07-16 15:00 | NUR ---
RADIOLOGY AT BEDSIDE AT TRANSPORT PATIENT TO RADIOLODY DEPT FOR CT.
--- NOTE | 2020-07-16 15:16 | NUR ---
PATIENT BACK IN ROOM FROM RADIOLOGY DEPARTMENT.
--- NOTE | 2020-07-16 15:55 | NUR ---
CHANGED PATIENT DRESSINGS TO RIGHT ELBOW, RIGHT KNEE, AND FRONT OF RIGHT CALF. WOUNDS HAD SEROSANGUINOUS DRESSING. PATIENT TOLERATED WELL. WOUNDS CLEANED WITH NORMAL SALINE AND COVERED WITH NONADHESIVE DRESSINGS, 4X4'S, AND WRAPPED WITH ARUNA.
[2020-07-17 00:25] VITALS: BP 128/55; TEMP 97.6
--- NOTE | 2020-07-17 03:39 | NUR ---
PATIENT WAS REPOSITIONED AND GIVEN PRN PO PAIN MEDICATION
[2020-07-17 04:00] VITALS: BP 115/59; TEMP 98.7
[2020-07-17 04:05] LABS: PLATELET COUNT 420 K/uL (142-355)
[2020-07-17 04:12] LABS: POTASSIUM 4.7 mmol/L (3.6-5.2)
[2020-07-17 08:04] VITALS: BP 107/54; TEMP 98.6
[2020-07-17 12:00] VITALS: BP 106/53; TEMP 97.3
[2020-07-17 16:07] VITALS: BP 110/55; TEMP 97.6
[2020-07-17 20:01] VITALS: BP 110/55; TEMP 97.7
--- NOTE | 2020-07-17 21:21 | NUR ---
PATIENT DRESSINGS WAS CHANGED. PATIENT WOUNDS IS CLEAN AND WRAPPED. SILVADENE APPLIED
[2020-07-18 00:22] VITALS: BP 122/63; TEMP 98.2
[2020-07-18 03:40] VITALS: BP 120/62; TEMP 98.5
[2020-07-18 05:43] LABS: PLATELET COUNT 432 K/uL (142-355)
[2020-07-18 05:53] LABS: POTASSIUM 4.7 mmol/L (3.6-5.2)
[2020-07-18 07:53] VITALS: BP 123/61; TEMP 98.3
[2020-07-18 11:48] VITALS: BP 100/48; TEMP 98.4
--- NOTE | 2020-07-18 15:37 | NUR ---
PT WAS ADMITTED WITH SKIN TEAR FROM FALL AT HOME PRIOR TO ADMISSION. SKIN TEARS TO RFA 3CMX4.3X0.1CM CM WITH BLACK ROLLLED EDGES. 5NPS0YHS9.1CM WITH BLACK ROLLED EDGES ON LOWER RFA. SKIN TEARS TO RLE. R KNEE 9CM X5.7CMX0.1CM MIDDLE OF RT LEG 7.0CMX8.0CMX0.1CM LOWER RT LEG 3.0CMX3.0CMX 0.1CM SKIN TEARS CLEANED WITH NS DRESSED PER MD ORDERS. PT TOLERATED WITH NO COMPLICATIONS.
--- NOTE | 2020-07-18 15:40 | NUR ---
WOUND CARE PERFORMED BY FOUNT[employer] PEN NIBS INSPECTOR AND BY CHARGE NURSE Luiz CÁRDENAS RN. WOUNDS MEASURED AND RECORDED BY CHARGE. PT NASH LICONA. PT EDUCATION PROVIDED ON TURN SCHEDULE D/T DTI ON BILATERAL BUTTOCKS. PT VERY RESISTANT TO TURNING, STATING IT "HURTS MY BACK".
--- NOTE | 2020-07-18 15:49 | NUR ---
REQUESTED PT'S DAUGHTER TO BRING PT'S HOME MED METFORMIN D/T HIM BEING OUT.
[2020-07-18 16:05] VITALS: BP 94/44; TEMP 98.5
--- NOTE | 2020-07-18 16:49 | NUR ---
PT'S DAUGHTER IN TO SEE PT. UPDATE GIVEN REGARDING DTI TO BUTTOCKS. PER DAUGHTER, THEY HAVE "TROUBLE WITH THAT AT HOME BECAUSE HE IS ALWAYS UP IN HIS CHAIR."
--- NOTE | 2020-07-18 17:33 | NUR ---
PT REFUSING TO ALLOW STAFF TO REPOSITION HIM, STATING "I JUST GOT COMFORTABLE."
[2020-07-18 20:00] VITALS: BP 105/47; TEMP 98.2
--- NOTE | 2020-07-18 21:40 | NUR ---
IN TO GIVE PM MEDS AT THIS TIME. ULTRAM PAIN MEDICINE ALSO GIVEN AT THIS TIME DUE TO CHRONIC LOW BACK PAIN. PT TOLERATED MEDS WELL. BP AT THIS TIME IS 105/47. PT IS SITTING UP IN A HIGH FOWLERS POSITION WITH BED WATCHING TV IN LOWEST POSITION WITH CALL LIGHT WITHIN REACH WITH NC @ 1LPM HUMIDIFIED O2. PT IS SATTING 96% AT THIS TIME. DRESSINGS TO THE RFA, RIGHT KNEE AND RIGHT CALF ARE INTACT. NAD NOTED AT THIS TIME.
[2020-07-19 00:26] VITALS: BP 115/49; TEMP 99
[2020-07-19 03:44] VITALS: BP 105/57; TEMP 97.8
[2020-07-19 05:33] LABS: PLATELET COUNT 458 K/uL (142-355)
[2020-07-19 05:56] LABS: POTASSIUM 4.5 mmol/L (3.6-5.2)
[2020-07-19 08:00] VITALS: BP 112/60; TEMP 98.3
--- NOTE | 2020-07-19 09:50 | NUR ---
IN PT'S ROOM FOR MORNING ASSESSMENT AND MEDICATION ADMINISTRATION. PT IS SITTING UP IN HIGH FOWLERS WATCHING TV. PT'S IV WAS CHECKED AND LOOKED TO BE WITHIN NORMAL LIMITS, PT STATED THAT THE IV BURNED SOME BUT THEN IT STOPPED. IV WAS FLUSHED WITH NORMAL SALINE WITHOUT ANY DIFFICULTY. NORMAL SALINE WAS STARTED WITH DOXYCYCLINE PIGGYBACK PER DOCTORS ORDERS. NORMAL SALINE IS RUNNING AT 75 ML/HR. HEART SOUNDS WERE REGULAR, LUNG SOUNDS WERE RHONCHI ALL OVER. PT HAS A NONPRODUCTIVE COUGH THAT SOUNDS LOOSE AND RATTLED. PT'S RIGHT ARM AND RT LEG ARE BOTH WRAPPED WITH BANDAGES. BANDAGES ARE DRY AND INTACT AND LEFT IN PLACE AT THIS TIME. PT TOOK MEDICATION BY MOUTH WITHOUT ANY DIFFICULTIES. PT STATED THAT HIS BACK HURT DUE TO HAVING DEGENERATIVE DISKS AND WANTED TYLENOL AND TO BE LAID DOWN LOWER. TYLENOL HAS BEEN GIVEN AND PT LAID IN LOW FOWLERS. PT SEEMS TO BE IN DISTRESS AT THIS TIME.
--- NOTE | 2020-07-19 10:30 | NUR ---
PT CALLED TO NURSES STATION ASKING FOR MIRALAX. PT STATED TO COMMUNICABLE DISEASE SPECIALIST THAT HE HAS NOT HAD A BOWEL MOVEMENT IN A COUPLE OF DAYS. DR. WEISS HAS BEEN CONTACTED AND AN ORDER FOR MIRALAX 17 GM PO DAILY HAS BEEN PUT IN. CURRENTLY WAITING FOR THE ORDER TO BE VERIFIED.
[2020-07-19 12:00] VITALS: BP 107/47; TEMP 98.9
--- NOTE | 2020-07-19 13:18 | NUR ---
WHILE GIVING THE PT HIS LUNCH PT ASKED WHAT WAS ON THE TRAY. REPRESENTATIVE STATED THAT THERE WAS A PORK CHOP, GREEN BEANS, AND MASHED POTATOES. THE PT STATED "I CANNOT EAT THAT, I CANNOT CHEW A PORK CHOP." REPRESENTATIVE STATED THAT THERE WAS ALSO SOME STRAWBERRIES AND WATERMELON ON THE TRAY. PT STATED "OK, I WILL TRY THAT THEN." REPRESENTATIVE REMOVED PORK CHOP FROM PLATE AND PUT FRUIT IN ITS PLACE TO MAKE IT EASIER FOR PT TO ACCESS. PT WAS EATING WHILE REPRESENTATIVE AND CHARGE NURSE WERE GETTING VANCOMYCIN READY TO HANG. PT BEGAN TO COUGH AND SEEMED TO BE CHOKING ON A PEICE OF FOOD. REPRESENTATIVE ASKED PT IF HE WAS OK, PT THREW HIS FORK AND STATED "BRING MY UNDER ARMOUR DRINK NOW". REPRESENTATIVE GAVE PT HIS UNDER ARMOUR DRINK FROM THE PT REFRIGERATOR. DR. WEISS WILL BE CONTACTED ABOUT CHANGING DIET TO A MECHANICAL SOFT DIET.
--- NOTE | 2020-07-19 14:12 | NUR ---
PT HAS DAUGHTER AT BEDSIDE, DAUGHTER BROUGHT PT MORE BODY ARMOUR DRINKS. DRINKS HAVE BEEN PLACED IN THE PT REFRIGERATOR WITH PT ELEMENTARY ASSISTANT TEACHER THEM.
[2020-07-19 16:00] VITALS: BP 107/56; TEMP 98.2
[2020-07-19 20:00] VITALS: BP 109/65; TEMP 98.3
[2020-07-20 00:17] VITALS: BP 131/53; TEMP 97.1
[2020-07-20 04:00] VITALS: BP 121/66; TEMP 97.5
[2020-07-20 08:00] VITALS: BP 134/66; TEMP 98.1
[2020-07-20 08:14] LABS: POTASSIUM 4.5 mmol/L (3.6-5.2)
[2020-07-20 08:25] LABS: PLATELET COUNT 514 K/uL (142-355)
--- NOTE | 2020-07-20 10:37 | NUR ---
RESP AT BS PERFORMING ECHO AT THIS TIME.
[2020-07-20 12:00] VITALS: BP 121/67; TEMP 98.3
--- NOTE | 2020-07-20 12:20 | NUR ---
BANDAGES HAVE BEEN UNWRAPPED ON RT ARM AND RT LEG. ABRASIONS TO RT KNEE ARE SUPERFICIAL WITH PINK TISSUE. ABRASIONS TO THE RT LOWER LEG ARE SUPERFICIAL WITH PURULENT DRAINAGE. THE RT FOREARM HAS SEVERAL ABRASIONS OF VARYING SIZES WITH PURULENT DRAINAGE. EACH ABRASION HAS BEEN CLEANED WITH NORMAL SALINE AND SILVADENE HAS BEEN APPLIED TO TELFA PADS AND PLACED DIRECTLY ON THE ABRASIONS. TELFA PADS ON THE RT KNEE AND LOWER RT LEG ARE SECURED WITH PAPER TAPE. TELFA PADS TO RT ARM ARE SECURED BY KEFLEX AND COVERED BY AN JOSLYN BANDAGE. WOUND CULTURES HAVE BEEN TAKEN OF PURULENT DRAINAGE TO THE RT LOWER LEG AND RT ARM.
[2020-07-20 16:00] VITALS: BP 116/54; TEMP 97.9
[2020-07-20 20:00] VITALS: BP 114/60; TEMP 97.9
--- NOTE | 2020-07-20 21:50 | NUR ---
GAVE NORCO 5/325MG PO PRN PER PT REQUEST FOR C/O CONSTANT PAIN TO LEGS AND PRIVATE AREA(HARD TO UNDERSTAND PT, MUMBLES) RATES PAIN A "10" ON SCALE. APPLIED NEW CATH SECURE TO R UPPER LEG DUE TO OTHER CATH SECURE APPEARED TO BE PULLING AND PT COMPLAINED ABOUT IT. WILL MONITOR CLOSELY, RAILS UP X3, BED IN LOW POSITION, CALL LIGHT IN REACH. NOTE CLEAR LIGHT YELLOW URINE IN KAN CATH BAG.
--- NOTE | 2020-07-20 22:30 | NUR ---
RESTING IN BED WITH EYES CLOSED AND LIGHT SNORING NOTED, RESP RATE NONLABORED, KAN PATENT DRAINING TO BEDSIDE, IV INTACT TO L ARM WITH NS INFUSING AT 75ML/HR, TELEMETRY IN USE, WILL MONITOR, NO S/S OF PAIN OR DISTRESS NOTED, RAILS UP, BED IN LOW POSITION, CALL LIGHT IN REACH.
[2020-07-21] VITALS (7 sets, daily range): BP systolic 106–134; BP diastolic 51–84; TEMP 97.6–98.9
--- NOTE | 2020-07-21 00:05 | NUR ---
RESTING WITH EYES CLOSED, NO S//S OF PAIN OR DISTRESS NOTED, WILL MONITOR, RAILS UP, BED IN LOW POSITION, CALL LIGHT IN REACH.
--- NOTE | 2020-07-21 02:10 | NUR ---
RESTING WITH EYES CLOSED, NO S/S OF PAIN OR DISTRESS NOTED, IV INTACT WITH FLUID ONGOING, RESP RATE NONLABORED, TELEMETRY IN USE, WILL MONITOR, RAILS UP, BED IN LOW POSITION, CALL LIGHT IN REACH.
--- NOTE | 2020-07-21 04:30 | NUR ---
RESTING WITH EYES CLOSED, NO S/S OF PAIN OR DISTRESS NOTED, KAN PATENT, RESP RATE NONLABORED, IV INTACT WITH FLUID ONGOING, TELEMETRY IN USE, WILL MONITOR, RAILS UP, BED IN LOW POSITION.
[2020-07-21 05:19] LABS: PLATELET COUNT 581 K/uL (142-355)
[2020-07-21 05:29] LABS: POTASSIUM 4.5 mmol/L (3.6-5.2)
--- NOTE | 2020-07-21 06:00 | NUR ---
C/O CONSTANT SHARP PAIN TO HIS BACK THAT IS A "10", GAVE TYLENOL 650MG PO PRN PER PT REQUEST FOR HIS PAIN, PT IN HIGH JUNG'S POSITION WITH NO ACUTE DISTRESS NOTED, PT DOES NOT WANT TO BE MOVED IN BED, TALKATIVE WITH BEFORE SCHOOL, IV INTACT WITH FLUID ONGOING, RESP RATE NONLABORED, KAN PATENT. WILL MONITOR, RAILS UP, BED IN LOW POSITION, CALL LIGHT IN REACH.
--- NOTE | 2020-07-21 10:30 | NUR ---
PATIENT IV INFILTRATED. 20G L WRIST D/C WITH TIP INTACT. ATTEMPTED TO RESTART A NEW IV. 2 ATTEMPTS UNSUCCESSFUL. STUDENT NURSE ATTEMPTED 2 TIMES WITH NO SUCCESS.
--- NOTE | 2020-07-21 11:30 | NUR ---
VALERIO JOHN AND GRISEL LE LPN ATTEMPTED TO START A NEW IV. 2 ATTEMPTS UNSUCCESSFUL.
--- NOTE | 2020-07-21 13:00 | NUR ---
SORAYA ROMO RN ATTEMPTED 3 TIMES TO INITIATE AN IV. 24G TO RIGHT HAND SUCCESSFUL. PATIENT TOLERATED WELL. IV ANTIBIOTICS RESTARTED TO 24G.
--- NOTE | 2020-07-21 13:46 | NUR ---
STATES " I AM SO WEAK I CAN NOT STAND UP BY MYSELF." HE HAD BEEN ABLE TO MOVE ABOUT HIS HOME WITH HIS WALKER AND WHEELCHAIR BEFORE ADMISSION. HE STARTED HAVING WEAKNESS BEFORE ADMISSION WHICH IS HOW HE HAD FALLEN AT HOME, WHICH RESULTED IN MULTIPLE BURISES AND SKIN TEARS TO E BILATERAL ARMS AND LEGS AND THERE IS AN ABRASION TO THE LEFT CHEECK AREA. DISCUSSED SWINGBED THERAPY WITH . PATIENT WOULD LIKE TO PARTICIPATE IN THE SWINGBED PROGRAM AND IS WILLING TO PARTICIPATE. HIS GOAL IS TO RETURN HOME WITH HIS WALKER HE WAS PREVIOUSLY.
--- NOTE | 2020-07-21 17:37 | NUR ---
PATIENT COMPLAINING OF IV BURNING. RECEIVED BLOOD RETURN FROM IV. ANTIBIOTICS TURNED DOWN TO 75ML/HR. ASKED PHARMACY TO RESCHEDULE GENTAMICIN.
--- NOTE | 2020-07-21 18:43 | NUR ---
WOUND CARE COMPLETED PER MD ORDERS. PT TOLERATED WELL.
--- NOTE | 2020-07-21 20:40 | NUR ---
PM MEDS AND TYLENOL AT THIS TIME FOR LOWER BACK PAIN. NS INFUSING AT 75 ML/HR IN A 24G RIGHT THUMB IV. NAD NOTED. PT IN A LOW JUNG POSITION WITH CALL LIGHT WITHIN REACH. PT TOLERATED WELL.
[2020-07-22 04:00] VITALS: BP 129/61; TEMP 98.3
[2020-07-22 08:00] VITALS: BP 128/68; TEMP 97.8
[2020-07-22] MEDS ORDERED: ACET-206 PO (11:57)
[2020-07-22] MEDS ORDERED: [UNRECOGNIZED DRUG - CODE] PO (11:58)
[2020-07-22] MEDS ORDERED: MIRALAX 17GM PAK PO (11:59)
[2020-07-22] MEDS ORDERED: SILV1CRE TOP (11:59)
[2020-07-22] MEDS ORDERED: HYDR5TAB9 PO (11:59)
[2020-07-22 12:00] VITALS: BP 128/52; TEMP 97.9
[2020-07-22 16:00] VITALS: BP 109/50; TEMP 98
[2020-07-22 19:46] VITALS: BP 123/50; TEMP 98.4
--- NOTE | 2020-07-22 21:05 | NUR ---
PM MEDS GIVEN AT THIS TIME. PT TOLERATED WELL. PT EDUCATED ON PT MOVING TO SWING BED STATUS AND HOW THE PROGRAM IS THERAPY BASED. PT VERBALIZED UNDERSTANDING. DRESSINGS TO THE RIGHT UPPER EXTREMITIES AND RIGHT LOWER LEG ARE INTACT. LOWER EXTREMITIES ELEVATED. PT IN A HIGH FOWLERS POSITION WITH SIDE RAILS UP TIMES TWO WITH CALL LIGHT WITHIN REACH. NAD NOTED.
[2020-07-22 23:47] VITALS: BP 113/53; TEMP 98.4
--- NOTE | 2020-07-23 01:52 | NUR ---
PATIENT HAS BEEN COACHED AND ENCOURAGED THROUGHOUT THE NIGHT TO BE MORE INDIPENDENT AND TURN WITH MINIMAL ASSIST. PATIENT HAS BEEN ERIC ON THE SIDERALE AND HELPPING PUSH WITH HIS LEG TO TURN
[2020-07-23 03:50] VITALS: BP 123/55; TEMP 97.7
--- NOTE | 2020-07-23 05:04 | NUR ---
PATIENT IS RESTING QUIETLY AND HIS BREATHING IS REGULAR NON LABORED
[2020-07-23 08:00] VITALS: BP 134/59; TEMP 98.7
[2020-07-23 12:00] VITALS: BP 103/52; TEMP 97.3
== END 2020-07-23 16:00 | disposition swing bed (61) | DRG 872 ==
LOC: ED 20:32 → MED/SURG 23:50
PROVIDERS: Internal Medicine Endocrinology, Diabetes & Metabolism; ADMIT Emergency Medicine Emergency Medical Services; ATTEND Internal Medicine
DX: A41.02 Sepsis due to Methicillin resistant Staphylococcus aureus (principal); N30.00 Acute cystitis without hematuria; L03.116 Cellulitis of left lower limb; L03.115 Cellulitis of right lower limb; R53.1 Weakness; R62.7 Adult failure to thrive; R26.89 Other abnormalities of gait and mobility; E87.6 Hypokalemia; E83.42 Hypomagnesemia; K21.9 Gastro-esophageal reflux disease without esophagitis; E78.49 Other hyperlipidemia; F41.8 Other specified anxiety disorders; G47.33 Obstructive sleep apnea (adult) (pediatric); G20 Parkinson's disease; E11.9 Type 2 diabetes mellitus without complications; M25.552 Pain in left hip; Z91.81 History of falling; J20.9 Acute bronchitis, unspecified; M26.69 Other specified disorders of temporomandibular joint; W18.39XA Other fall on same level, initial encounter; Y92.89 Other specified places as the place of occurrence of the external cause; I11.0 Hypertensive heart disease with heart failure; I50.9 Heart failure, unspecified
CPT/HCPCS: 36415; 51702; 80048; 80053; 80170; 80202; 81000; 82550; 82553; 83605; 83735; 83880; 84484; 85007; 85027; 85610; 85730; 87040; 87070; 87077; 87086; 87088; 87185; 87186; 87205; 87502; 87635; 93005; 94640; 94664; 94760; 96360; 96361; 96365; 99284; J1580; J1644; J1650; J1940; J1956; J2543; J3370; J3490; U0003

== ENCOUNTER 2020-07-23 16:00 | Inpatient (IN) | payer OTHER ==
[~2020-07-23] VITALS: Ht 180.3 cm; Wt 87.7 kg
[~2020-07-23 16:00] MED LIST changes: +ACET-206 PO; +HYDR5TAB9 PO; +METFORMIN HYDR750 MG PO; +MIRALAX 17GM PAK PO; +[UNRECOGNIZED DRUG - CODE] PO
[2020-07-23 16:28] VITALS: BP 134/59; TEMP 98; Ht 180.3 cm; Wt 87.7 kg
--- NOTE | 2020-07-23 16:50 | NUR ---
PT CHANGED TO SWING BED STATUS PER MD ORDERS.
--- NOTE | 2020-07-23 17:41 | NUR ---
PT'S ASSESSMENT CHARTED UNDER PREVIOUS CARE PLAN ASSESSMENT
[2020-07-23 20:27] VITALS: BP 108/50; TEMP 98.6
--- NOTE | 2020-07-24 07:40 | NUR ---
PT LAYING IN BED IN HF AWAKE. PT STATES "I DIDN'T SLEEP AT ALL LAST NIGHT, WILL YOU SEE IF THEY CAN GET ME SOMETHING TO HELP ME SLEEP" INFORMED PT HIS KLONOPIN DIDN'T GET SWAPPED OVER AND MAYBE THAT'S WHY. PT THEN STATES "NO THAT DON'T WORK ANYWAY, I WAS GOING TO STOP IT AT HOME I HAD DONE TOLD MY DAUGHTER TO TAKE IT OUT OF MY MEDICINE. THEY CAN JUST STOP THAT AND GET ME SOMETHING FOR SLEEP. THERE IS NO SINCE IN TAKING SOMETHING THAT ISN'T WORKING" EDUCATED PT THAT I WILL NOTIFIED DR. CRUZ AND LET HER KNOW WHAT HE STATES AND WE WILL SEE WHAT SHE RECOMMENDS FOR HIM AND LET HIM KNOW THE PLAN AND DISCUSS IT WITH HIM. PT VERBALIZES UNDERSTANDING. AM ASSESSMENT COMPLETED MILD EDEMA NOTED TO BLE DRESSING TO RLE AND RUE DRY AND INTACT AT THIS TIME. PT ALERT AND ORIENTED X4. HR REGULAR, LUNGS SOUNDS CLEAR THROUGH OUT BILAT, POSITIVE BS X4 QUAD. NAD NOTED. PT ALSO REQUESTS THAT DR. CRUZ SEE ABOUT GETTING HIM A CORTISONE SHOT FOR HIS BACK HURTING. ENCOURAGED PT TO MOVE AND TURN IN BED TO ASSIST WITH GETTING STIFF AND PREVENTING PAIN. PT STATES "WHEN THEY TURN ME IT FEELS LIKE ITS JUST BREAKING IN HALF" INFORMED PT I WOULD LET DR. CRUZ KNOW ABOUT HIS COMPLAINT.
[2020-07-24 08:00] VITALS: BP 115/55; TEMP 98.5
[2020-07-24 20:06] VITALS: BP 108/52; TEMP 98.2
--- NOTE | 2020-07-24 20:20 | NUR ---
PT CALLED DIGITAL TRAFFIC COORDINATOR LIGHT STATING HE NEEDS TO BE CHANGED. TRANSCRIBING MACHINE OPERATOR AND TECH ASSISTED PT TO TURN SIDE TO SIDE IN BED WHILE STAFF CLEANED LOOSE LARGE BM AND DEPEND CHANGED. PT ASSIST TO TURN SOME AND HELD ON TO SIDE RAILS. PT PULLED UP IN BED BUT DOES NOT WANT TO BE POSITIONED TO SIDE WITH PILLOW TO HIS BACK. RESP RATE NONLABORED, KAN PATENT DRAINING TO BEDSIDE AND CLAMPED BUT URINE NOTED IN TUBING WHEN ASKED PT STATES HE THINKS HE FELT HE HAD TO URINATE EARLIER. UNCLAMPED KAN AT THIS TIME. HEEL PROTECTORS IN USE, DRESSINGS INTACT TO R ARM AND R LOWER LEG, SCABBED OVER AREAS NOTED TO LEGS AND BRUISES. WILL MONITOR, RAILS UP, BED IN LOW POSITION, CALL LIGHT IN REACH.
--- NOTE | 2020-07-24 21:24 | NUR ---
PT C/O CONSTANT PAIN TO HIS BACK THAT IS A "6 OR 7" ON SCALE, GAVE TRAMADOL 50MG PO PRN ALONG WITH OTHER NIGHT MEDICATIONS. PT SHAKEY BUT HELD DRINK AND MED CUP ON HIS OWN. HOB REMAINS ELEVATED. WILL MONITOR, RAILS UP, BED IN LOW POSITION, CALL LIGHT IN REACH.
--- NOTE | 2020-07-24 22:10 | NUR ---
AWAKE WATCHING TV WITH NO ACUTE DISTRESS OR PAIN NOTED, DENIES ANY NEEDS AT THIS TIME, RAILS UP, BED IN LOW POSITION.
--- NOTE | 2020-07-24 23:50 | NUR ---
CHARGE NURSE TOOK PT NUTRITIONAL DRINK PER PT'S REQUEST, NOTE PT DRANK ALL OF DRINK.
--- NOTE | 2020-07-25 01:17 | NUR ---
PT NOTED TO BE AWAKE WATCHING TV AND HAS NOT SLEPT ALL NIGHT. NO S/S OF ACUTE DISTRESS NOTED, RESP RATE NONLABORED, DRESSINGS DRY AND INTACT TO WOUNDS ON R ARM AND R LOWER LEG ALSO NOTE HEALING SCABBED OVER AREAS TO LEGS AND SOME OLD BRUISING ON MULTIPLE AREAS OF BODY FROM FALL AT HOME BEFORE ADMIT. ABRASION THAT WAS SCABBED OVER ON L SIDE OF FACE IS NOW ALMOST HEALED IT IS JUST A SLIGHTLY RED AREA OF SMOOTH SKIN NO SCAB NOTED. C/O PAIN TO HIS BACK GAVE TYLENOL 650MG PO PRN PER REQUEST, ATTEMPTED TO REPOSITION PT IN BED TO HELP WITH PAIN PT OFTEN STAYS IN SAME POSITION BUT PT WILL NOT ALLOW FURNITURE SALESPERSON TO REPOSITION HIM IN BED OR PUT PILLOW TO BACK TO TURN SLIGHTLY TO SIDE. EDUCATED PT ON IMPORTANCE OF REPOSITIONING AND MOVING AROUND IN BED OFTEN. PT STILL REFUSES. HEEL PROTECTORS IN USE WILL MONITOR, RAILS UP, BED INLOW POSITION.
--- NOTE | 2020-07-25 02:00 | NUR ---
AWAKE WATCHING TV WITH NO S/S OF PAIN OR DISTRESS, STATES HE IS OKAY JUST CAN NOT SLEEP NO MENTION OF PAIN, WILL MONITOR CLOSELY.
--- NOTE | 2020-07-25 02:45 | NUR ---
CALL LIGHT ANSWERED, PT AWAKE AND ALERT LAYING IN BED WATCHING TV WITH NO ACUTE DISTRESS NOTED, KAN PATENT. STATES HE NEEDS TO BE CHANGED. DEPEND CHANGED AND PT DID HOLD ONTO BED RAILS AND SLIGHTLY ASSISTED STAFF X 2, NOTE LARGE LIQUID BM, BARRIER CREAM APPLED TO BOTTOM AND PERINEAL AREA. PULLED UP IN BED AND REPOSITIONED TO R SIDE, HEEL PROTECTORS IN USE, RAILS UP, BED IN LOW POSITION.
--- NOTE | 2020-07-25 04:20 | NUR ---
PT CALLED TO BE REPOSITIONED IN BED, REPOSITIONED TO SIDE WITH PILLOW TO BACK, FEET ELEVATED ON PILLOW, HOB IN LOW JUNG'S PER PT'S COMFORT, NO ACUTE DISTRESS NOTED, WILL MONITOR CLOSELY. NOTE PT DID HELP TURN TO SIDE SOME AND HELD BED RAIL.
--- NOTE | 2020-07-25 05:49 | NUR ---
CALL LIGHT ANSWERED. PT AWAKE AND ORIENTED WITH NO ACUTE DISTRESS NOTED, NOTE PT HAS NOT SLEPT ANY DURING THE NIGHT, RESP RATE NONLABORED, LUCIUS PATENT. C/O CONSTANT PAIN TO BACK THAT IS 'ABOUT A 6 OR 7" ON SCALE, GAVE TRAMADOL 50MG PO PRN PER REQUEST. WILL MONITOR CLOSELY, RAILS UP, BED IN LOW POSITION, CALL LIGHT IN REACH.
--- NOTE | 2020-07-25 07:30 | NUR ---
PT NOTED TO BE RESTING QUIETLY AT THIS TIME WITH EYES CLOSED. NAD NOTED. PT KAN CLAMPED FOR CON'T BLADDER TRAINING.
[2020-07-25 08:00] VITALS: BP 106/58; TEMP 97.7
--- NOTE | 2020-07-25 09:47 | NUR ---
AM ASSESSMENT COMPLETED. AM MEDS GIVEN. PT REPORTS NOT FEELING THE URGE TO VOID. PT KAN UNCLAMPED AT THIS TIME.
--- NOTE | 2020-07-25 13:32 | NUR ---
RESPONDED TO PT CALL LIGHT, PT REQUEST THAT I CHECK HIS KAN THAT IT CLAMPED DUE TO PT FEELING THE URGE TO URINATE, KAN UNCLAMPED AT THIS TIME AND CLEAR YELLOW URINE NOTED ON RETURN IN BAG, KAN LEFT UNCLAMPED AT THIS TIME AND WILL RETURN TO ASSESS URINE OUTPUT, NO FURTHER NEEDS AT THIS TIME, CALL LIGHT WITHIN REACH, WILL CONTINUE TO MONITOR
--- NOTE | 2020-07-25 16:00 | NUR ---
REC'D ORDERS TO GO AHEAD REMOVE PT'S KAN CATHETER. 7CC NS REMOVED FROM BULB. 12FR KAN DC'D WITHOUT DIFFICULTY AT THIS TIME. PT TOLERATED WELL. WILL CON'T TO MONITOR FOR PT'S OUTPUT. 400CC YELLOW URINE NOTED IN KAN BAG.
[2020-07-25 20:00] VITALS: BP 108/54; TEMP 98.1
--- NOTE | 2020-07-25 21:14 | NUR ---
PT AWAKE WATCHING TV WITH NO S/S OF PAIN OR DISTRESS NOTED, RESP RATE NONLABOORED, ON ROOM AIR, BROUGHT PT URINAL AND PUT IT WITHIN REACH, PT ASKED HOW HE WAS TO URINATE IF HE FEELS URGE TO GO, INFORMED PT THAT HE COULD USE URINAL AND CALL US FOR HELP. PT STATES HE HAS TROUBLE USING URINAL AND GETTING HIS SELF WET INFOMED PT THAT IF THAT HAPPENS TO CALL AND STAFF WOULD GET HIM CLEANED UP. GAVE NIGHTLY MEDICATIONS BY MOUTH, PT HAND SHAKY BUT PT HOLDS MED CUP AND HIS DRINK AND TOOK HIS MEDS, HEALTH COACH DOES ASSIST TO HOLD CUP STEADY AT TIMES. SKIN WARM AND DRY, RADIAL PULSES INTACT, BS+, LUNGS DIMINISHED, DRESSINGS INTACT TO R LOWER LEG AND R ARM, NO SCABBED OVER HEALING AREAS IN MULTIPLE AREAS ON EXTREMITIES. PT PULLED UP IN BED BUT DOES NOT WANT TO BE REPOSITIONED. PT STATES HE HURTS SOME ALL OVER AND THAT IS WHY HE CAN NOT DO MUCH THERAPY STATES TYLENOL DOES NOT REALLY HELP, PT ASKS WHEN HE HAD PAIN MED LAST INFORMED HIM THAT HE JUST HAD TRAMADOL APPROX 2 HOURS AGO BUT HE COULD HAVE TYLENOL IF NEEDED PT STATES HE WILL WAIT FOR THE TRAMADOL. PT TALKATIVE SOME WITH STAFF. WILL MONITOR CLOSELY, RAILS UP, BED IN LOW POSITION, CALL LIGHT IN REACH.
--- NOTE | 2020-07-25 22:25 | NUR ---
CALL LIGHT ANSWERED, PT REQUESTING A CHOCOLATE NUTRITIONAL DRINK, CHARGE FRITZ BEASLEY TOOK PT DRINK PER REQUEST. NOTE PT'S SUPPER TRAY AT BEDSIDE WITH ONLY THE BANNANA PUDDING MISSING WHEN ASKED ABOUT REST OF HIS TRAY PT STATES HE DOES NOT WANT IT.
--- NOTE | 2020-07-26 00:20 | NUR ---
CALL LIGHT ANSWERED PT ALERT AND ORIENTED LAYING IN BED WITH NO ACUTE DISTRESS NOTED, RESP RATE NONLABORED, DRESSINGS DRY AND INTACT TO R ARM AND R LOWER LEG, HEEL PROTECTORS IN USE. C/O BEING COLD, AC TURNED OFF AND HEAT TURNED ON. WILL MONITOR CLOSELY. PT HAS NOT BEEN TO SLEEP TONIGHT.
--- NOTE | 2020-07-26 00:40 | NUR ---
CALL LIGHT ANSWERED, PT STATES HE IS COLD REQUESTS A BLANKET, BROUGHT PT A BLANKET.
--- NOTE | 2020-07-26 01:57 | NUR ---
CALL LIGHT ANSWERED, PT C/O PAIN TO R SIDE OF JAW THAT IS CONSTANT AND A "5" ON SCALE. GAVE TRAMADOL 50MG PO PRN FOR PAIN. PT DOES NOT WANT STAFF TO TURN HIM AND PUT PILLOW TO HIS BACK, REMINDED THAT POSITION CHANGES SHOULD HELP WITH PAIN. WILL MONITOR CLOSELY, RAILS UP, BED IN LOW POSITION, CALL LIGHT IN REACH.
--- NOTE | 2020-07-26 03:00 | NUR ---
CALL LIGHT ANSWERED, PT C/O BEING HOT. STAFF WENT TO ROOM TURNED AC BACK ON AND TOOK BLANKET OFF OF PT, NO ACUTE DISTRESS NOTED, RAILS UP, BED IN LOW POSITION.
--- NOTE | 2020-07-26 06:00 | NUR ---
RESTING IN BED WITH EYES CLOSED AND LIGHT SNORING NOTED, RESP RATE NONLABORED, NO S/S OF DISTRESS NOTED, RAILS UP, BED IN LOW POSITION, CALL LIGHT IN REACH. NOTE PT HAS ONLY SLEPT APPROX 2-3 HOURS TONIGHT.
[2020-07-26 08:00] VITALS: BP 101/51; TEMP 98.2
--- NOTE | 2020-07-26 08:30 | NUR ---
PT AT BEDSIDE. PATIENT TRANSFERRED TO CHAIR. PATIENT EATING BREAKFAST. NAD NOTED.
--- NOTE | 2020-07-26 11:31 | NUR ---
PATIENT COMPLAINS OF PAIN AT THIS TIME. REQUESTED PAIN MEDICATION.
--- NOTE | 2020-07-26 17:21 | NUR ---
DRESSING CHANGED PERFORMED TO RIGHT ARM AND RIGHT LOWER LEG. WOUNDS CLEANED WITH NORMAL SALINE. SILVADENE APPLIED TO WOUNDS WITH ADAPTIC DRESSING. CEOVERED WITH 4X4S AND WRAPPED WITH ARUNA. RIGH ARM WRAPPED WITH JOSLYN BANDAGE WELL.
[2020-07-26 19:49] VITALS: BP 99/50; TEMP 98.6
--- NOTE | 2020-07-26 21:20 | NUR ---
PT. SITTING UP IN A LOW FOWLERS POSITION WITH SIDE RAILS UP TIMES TWO WITH BED IN LOWEST POSITION. PM MEDS GIVEN AT THIS TIME. TRAMADOL PAIN MED GIVEN PER PATIENT FOR BACK PAIN. PT TOLERATED WELL. DRESSINGS TO THE RIGHT LEG AND ARM ARE INTACT AT THIS TIME. NAD NOTED. CALL LIGHT WITHIN REACH.
[2020-07-27 08:00] VITALS: BP 114/56; TEMP 97.9
--- NOTE | 2020-07-27 14:30 | NUR ---
OT AT BEDSIDE. PATIENT TOOK BED BATH AT THIS TIME. PATIENT TOLERATED WELL. NAD NOTED.
--- NOTE | 2020-07-27 16:25 | NUR ---
DRESSING CHANGE PER ORDERS TO RIGHT ARM AND RIGHT LOWER LEG. WOUNDS CLEANED WITH NORMAL SALINE. PATTED DRY. SILVADENE CREAM APPLIED WITH ADAPTIC DRESSING. REINFORCED WITH 4X4'S AND WRAPPED WITH ARUNA. ARM WRAPPED WITH JOSLYN BANDAGE WELL. PATIENT TOLERATED WELL. MINIMAL DRAINAGE TO RIGHT ARM. MODERATE SEROSANGUINOUS DRAINAGE TO RIGHT LOWER LEG. NO ODOR TO WOUNDS. PATIENT DENIES PAIN WITH DRESSING CHANGE AT THIS TIME. WILL CONTINUE TO MONITOR.
[2020-07-27 19:44] VITALS: BP 111/54; TEMP 98.3
--- NOTE | 2020-07-27 20:27 | NUR ---
PT IS SITTING UP IN BED IN A LOW FOWLERS POSITION AT THIS TIME WATCHING TV WITH BOTH DRESSINGS TO THE RIGHT ARM AND LEG INTACT AND DRY. PM MEDS GIVEN ALONG WITH PRN TRAMADOL MEDICATION ORDERED FOR BEDTIME FOR CHRONIC BACK PAIN. SIDE RAILS UP TIMES TWO WITH BED IN LOWEST POSITION WITH CALL LIGHT WITHIN REACH. NAD NOTED AND REACTIVE TO VERBAL STIMULI AT THIS TIME.
--- NOTE | 2020-07-28 04:46 | NUR ---
PATIENT IS RESTING QUIETLY AND BREATHING IS NON LABORED AND EVEN
[2020-07-28 08:00] VITALS: BP 105/52; TEMP 98
--- NOTE | 2020-07-28 08:30 | NUR ---
IN PT RM FOR MORNING ASSESSMENT AND ADMINISTER MORNING MEDS, PT LYING IN HF, NAD NOTED, NON-LABORED BREATHING, BREAKFAST SET UP FOR PT AT THIS TIME, DRESSING INTACT TO RT FA AND RT LOWER EXT WITH NO DRAINAGE NOTED, BILAT LOWER EXT SWELLING, NO PITTING NOTED, RED DARKENED AREAS NOTED TO BILT UPPER AND LOWER EXT, PT STATES HE IS NOT IN PAIN AT THIS TIME, PT TOOK MEDICATIONS WIHTOUT DIFFICULTY, PT HAS NO NEEDS AT THIS TIME, CALL LIGHT IS WITHIN REACH, WILL CONTINUE TO MONITOR
--- NOTE | 2020-07-28 09:30 | NUR ---
ANITA, INSTRUCTOR FROM [facility] AND TWO STUDENTS ASSISTED WITH DRESSING CHANGE TO RT ARM AND RT LOWER LEG, AREA CLEANSED TO RT UPPER ARM WITH NS, SKIN TEARS HEALING WITH NO OPEN AREAS OR DRAINAGE NOTED, SILVADENE CREAM APPLIED, ADAPATIVE GAUZE PLACED WITH 4X4 GAUZE PLACED ON TOP AND RT ARM WRAPPED WITH ARUNA AND JOSLYN BANDAGE, RT LOWER LEG CLEANSED WITH NS, ONE PREVIOUS SORE HEALED, THREE OPEN AREAS HEALING TO RT LOWER LEG NOTED WITH MINIMAL DRAINAGE AND FOUL ODOR NOTED, SILVADENE APLLIED WITH VASELINE GAUZE, 4X4 GAUZE PLACED AND WRAPPED WITH ARUNA, PT TOLERATED WELL, NO FURTHER NEEDS AAT THIS TIME
[2020-07-28 20:00] VITALS: BP 103/45; TEMP 99.1
[2020-07-29 08:00] VITALS: BP 111/54; TEMP 98.1
--- NOTE | 2020-07-29 09:15 | NUR ---
RAYMUNDO, PT REPORTS BEING UNABLE TO DO THERAPY AT THIS TIME DUE TO PT BEING SO DROWSY. SPOKE WITH DR. WEISS PT'S CHELSEY ANDRADE AT THIS TIME. DELICIA REPORTS SHE WILL COME BACK LATER AND TRY AGAIN
--- NOTE | 2020-07-29 12:47 | NUR ---
RAYMUNDO, PT AND CARLOS BARKER AT PT'S BEDSIDE FOR THERAPY. PT NOTED TO BE SITTING UP ON BEDSIDE FEEDING HIS SELF LUNCH. LUNCH SET UP BY OT.
--- NOTE | 2020-07-29 15:54 | NUR ---
PT TOO DROWSY AND UNABLE TO TAKE PO MEDS AT THIS TIME. DON PCT REPORTS PT DOES NOT WANT ANYTHING FOR PAIN, HE IS NOT HURTING AND DOES NOT WANT ANYTHING.
--- NOTE | 2020-07-29 16:14 | NUR ---
Swing Bed patient and we had the IDT team meeting today and I went bu his room earlier this am as well and he was asleep and he is having problems with pain medicaitons and it is keeping him asleep too shreyas, I talked with the IDT staff as well as Sia earlier today and he has had a recent hospitalization with sepsis and is a 80 YOM, MRSA, Bactesemia, cellulitis, and is 5'11' at 212 on admission and is now at 208 lbs. and he was drinking Glucerna 1.5 when I was in his room wiht the IDT meeting. falls frequently, weakness, NID DM II, axiety, sleep apnea, OA, PVD, HTN, Parkinson's disease, unsteady gait, heart disease, HTN,benign with heart failure, obesity, PAD and UTI.Elevated labs reveal creat kinase, B Monisha peptice, WBC, lactic acid, pl. coutn, HGBA1C, and those depressed are RBC, H and H, Na, Cl, ALT, and alb depressed. IBW = 172+/-10% (155 to 189 lbs. ) and kcal needse x 25 to 40 = 2000 to 3100 kcal/day, pro needs x 1.2 to 1.5 = 94 to 117 grams per dya and fluids as tolerated d/t dx. as MD feels patient can tolerated and BMI is 29 and is overweight and is 121% of IBW. RD available as needed and all food preferences honored and substitutes offered with all meals. RD Recommendations: 1-Monitor labs 2-Make sure hydrated 3-PT to work with patinet 4-OT to work with patient 5-Pain Management 6-Increase fluids as tolerated but d/t dx. may need to restrict fluids 7-Add hig fiber to the diet plan 8-add MVI 9-Add Protein 30 ml/cc TID, 10-Add Vitamin C 500 mg BID 11-Add ZNSO4 220 mg per day x 14 days
[2020-07-29 19:57] VITALS: BP 103/49; TEMP 98.5
--- NOTE | 2020-07-29 21:00 | NUR ---
PT AWAKE WATCHING TV, DENIES ANY PROBLEMS AT THIS TIME, NO S/S OF PAIN OR DISTRESS NOTED, TALKATIVE WITH NUCLEAR CARDIOLOGY TECHNOLOGIST. GAVE NIGHTLY MEDICATIONS AT THIS TIME, PT REFUSED LYRICA STATES IT MAKES HIM SLEEPY. PT TOOK MEDS WITH SOME ASSIST OF NUCLEAR CARDIOLOGY TECHNOLOGIST DUE TO SHAKING WHILE HOLDING DRINK. WILL MONITOR, RAILS UP, BED IN LOW POSITION, CALL LIGHT IN REACH.
--- NOTE | 2020-07-30 00:06 | NUR ---
RESTING QUIETLY IN BED WITH EYES CLOSED, NO S/S OF PAIN OR DISTRESS NOTED, RAILS UP, BED IN LOW POSITION, CALL LIGHT IN REACH, WILL MONITOR CLOSELY.
--- NOTE | 2020-07-30 03:05 | NUR ---
RESTING IN BED WITH EYES CLOSED, NO S/S OF PAIN OR DISTRESS NOTED, WILL MONITOR, RAILS UP, BED IN LOW POSITION.
--- NOTE | 2020-07-30 04:45 | NUR ---
CALL LIGHT ANSWERED, PT FOUND AWAKE LAYING IN BED WITH NO S/S OF PAIN OR DISTRESS NOTED. BROUGHT PT SNACK OF CRACKERS AND NUTRITIONAL DRINK PER REQUEST. DENIES ANY OTHER NEEDS, WILL MONITOR CLOSELY, RAILS UP, BED IN LOW POSITION, CALL LIGHT AND URINAL WITHIN PT'S REACH. EMPTIED URINAL WITH 275ML YELLOW URINE NOTED.
[2020-07-30 08:00] VITALS: BP 96/52; TEMP 98.1
--- NOTE | 2020-07-30 13:33 | NUR ---
07/30/20 1300 SPOKE WITH PATIENT CONCERNING IF HIS PAIN PATCHES HAS RELEIVED PAIN IN LOWER LEGS.PHARMACY CALLED TO CHECK TO SEE IF MEDICATION IS WORKING RELEVING PAIN.MARILYN SUGGESTED HE MAY TRY SOME VOLTAREN GEL WELL.TOLD MARILYN IN PHARMACY I WILL SUGGEST THIS TO .PT CALL LIGHT WITHIN REACH.CC
--- NOTE | 2020-07-30 16:15 | NUR ---
07/30/20 1500 DAUGHTER HERE CONCERNED ABOUT PT TAKING LYRICA EXPLAINED THEY DECREASED DOSAGE TO 25MG PO BID DOWN FROM 75MG.TLD HER I WOULD SPEAK WITH ABOUT HER CONCERNS. STATED WE CAN WATCH PT WITH THIS DOSAGE TO SEE HOW HE DOES.IF MEDICATION MAKES HIM DROWSY HE COULD REFUSE OR DISCONTINUE IT.DICUSSED WITH VERBALIZED UNDERSTANDING.
--- NOTE | 2020-07-30 17:19 | NUR ---
07/30/20 DSY TO UPPER RT ARM CHANGED ALSO RT KNEE AND DSY TO RT LOWER LEG.APPLIED SIVADEEN TO SITES WITH NONSTICK TELF PADS.WRAPPED WITH ARUNA AND PAPER TAPE.TOLERATED WELL.
--- NOTE | 2020-07-30 17:57 | NUR ---
07/30/20 2266 THERAPY PRESENT IN ROOM TO ASSIST PT OUT OF BED FOR EVENING MEAL.CC
[2020-07-30 19:56] VITALS: BP 111/55; TEMP 98.4
--- NOTE | 2020-07-30 21:55 | NUR ---
PATIENT SCHEDULED LYRICA WAS PILLED AND GIVEN TO THE PATIENT. THE PATIENT REFUSED AND THE LYRICA WAS WASTED. THE PATIENT ASKED FOR PRN TRAMADOL FOR PAIN
--- NOTE | 2020-07-30 22:34 | NUR ---
PATIENT REPORTS RELIEF FROM BACK PAIN. PATIENT IS UP WATCHING TV
--- NOTE | 2020-07-31 05:13 | NUR ---
PATIENT IS RESTING QUIETLY WITH EYES CLOSED AND STEADY BREATHING
[2020-07-31 08:00] VITALS: BP 114/51; TEMP 98
--- NOTE | 2020-07-31 09:00 | NUR ---
PT AT BEDSIDE. PATIENT TRANSFERRED TO WHEELCHAIR. PATIENT HAD A DIFFICULT TIME STANDING. TRANSFER REQUIRED 2 PEOPLE TO ASSIST. PATIENT SITTING IN WHEELCHAIR EATING BEDSIDE. PATIENT LINENS CHANGED BY MAGAZINE JOURNALIST. PT TO COME BACK TO TRANSFER PATIENT BACK TO BED.
--- NOTE | 2020-07-31 18:05 | NUR ---
BANDAGES REMOVED FROM RT ARM AND LLE. AREAS OF CONCERN CLEANED PER MD ORDERS. MD NOTIFIED REGARDING AREAS OF CONCERN NEW ORDER TO D/C PREVIOUS WOUND CARE GIVEN.
[2020-07-31 19:49] VITALS: BP 103/44; TEMP 98.7
[2020-08-01 08:00] VITALS: BP 107/56; TEMP 97.9
--- NOTE | 2020-08-01 18:02 | NUR ---
PT CALLED FOR NURSE. I SPOKE TO PT AND TOOK TORADOL AND PREDNISONE TO BEDSIDE. PT REFUSED BOTH MEDICATIONS. I EDUCATED THE PT ON THE BENEFITS OF BOTH AND HE ACCEPTED THE TORADOL. BUT STILL REFUSES THE PREDNISONE.
[2020-08-01 20:06] VITALS: BP 93/51; TEMP 98.5
--- NOTE | 2020-08-01 21:05 | NUR ---
PM MEDS GIVEN AT THIS TIME AND LIDOCAINE PATCHES TAKEN OFF ALSO AT THIS TIME. PT TOLERATED WELL. PT IN A HIGH-FOWLERS POSITION WITH BED IN LOWEST POSITION WATCHING TV WITH CALL LIGHT WITHIN RECH. NAD NOTED. NO PAIN MEDICINE GIVEN AT THIS TIME.
[2020-08-02 08:00] VITALS: BP 111/62; TEMP 98.1
--- NOTE | 2020-08-02 09:30 | NUR ---
PT REFUSED PREDNISONE AT THIS TIME. DR. WEISS NOTIFIED.
[2020-08-02 20:00] VITALS: BP 109/49; TEMP 97.4
[2020-08-03 08:00] VITALS: BP 105/54; TEMP 98.1
--- NOTE | 2020-08-03 13:15 | NUR ---
RESPONDED TO PT CALL LIGHT, PT STATES HE IS HAVING PAIN TO RIGHT LOWER JAW AND RT INSIDE OF EAR, NO DEFORMITIES NOTED TO AREAS ON PALPATION, DR. WEISS MADE AWARE AND STATES PT HAS TMJ AND WAS PRESCRIBED PREDISONE BUT PT REFUSES MEDICATION, PT STATES HE DOES NOT LIKE TAKING ALOT OF MEDICATIONS AND WOULD NOT LIKE TO TAKE THE PREDNISONE HE STATES HE WILL SEE IF THE TRAMADOL WILL HELP WITH THE PAIN, NO ORDER GIVENN AT THIS TIME
[2020-08-03 20:00] VITALS: BP 121/63; TEMP 98.2
[2020-08-04 08:00] VITALS: BP 127/64; TEMP 97.6
--- NOTE | 2020-08-04 09:07 | NUR ---
PT CONDITION AND CHART REVIEWED WITH NO NEW ORDERS GIVEN AT THIS TIME
--- NOTE | 2020-08-04 11:30 | NUR ---
THERAPY APPROACHED NURSES STATION TO TELL MANAGER ENERGY THAT PT COULD NOT BEAR WEIGHT ON LEG. CHARGE NURSE AND TECH WITNESSED PATIENT STAND FOR 12 SECS AND TRANSFER TO CHAIR.
[2020-08-04 19:52] VITALS: BP 101/50; TEMP 97.5
--- NOTE | 2020-08-05 05:08 | NUR ---
08/05/20 0000: PT AWAKE, HAS REFUSED LYRICA AND TORADOL THIS SHIFT. PT REFUSES TO BE TURNED, STATING IT HURTS HIS HIPS TOO BAD. PT INSISTS THAT HE WANTS TO SEE DR. HINES IN THE AM. I TOLD HIM THAT I WOULD PASS IT ON TO DAY SHIFT NURSE.
--- NOTE | 2020-08-05 06:11 | NUR ---
PT REFUSED TORADOL BUT REQUESTED TRAMADOL 50 MG PO FOR HIP AND LEG PAIN BILATERALLY. TRAMADOL GIVEN.
--- NOTE | 2020-08-05 07:40 | NUR ---
ON ROUNDING PATIENT WAS NOTED RESTING WITH EYES CLOSED BUT EASILY AWAKENS. PATIENT DENIES ANY PAIN AT THIS TIME. SHIFT ASSESSMENT COMPLETED. WOUNDS TO BILATERAL UPPER AND LOWER EXTREMITIES ARE HEALING WOUNDS PINK WITH NO SIGNS OF BLEEDING OR DRAINAGE NOTED. BED LOCKED IN LOW POSITION, CALL ISABEL WITHIN REACH.
[2020-08-05 08:00] VITALS: BP 120/54; TEMP 97.8
[2020-08-05 18:14] LABS: POTASSIUM 4.6 mmol/L (3.6-5.2)
[2020-08-05 19:58] VITALS: BP 110/53; TEMP 98.1
--- NOTE | 2020-08-06 02:47 | NUR ---
08/05/20 AT 2100: PT ALERT REFUSES TO TURN OR BE REPOSITIONED. TRAMADOL GIVEN WITH NIGHT MEDS. PT HAS NO VOICED COMPLAINTS AT THIS TIME.
[2020-08-06 08:00] VITALS: BP 108/49; TEMP 98.6
--- NOTE | 2020-08-06 08:56 | NUR ---
CALLED DR RAMIREZ OFFICE IN [place] [phone] TO SCHEDULE AN APPOINTMENT. I WAS TRANSFERED TO DR RAMIREZ NURSE LEFT A MESSAGE ON HER VOICE MAIL ASKING HER TO RETURN MY CALL.
--- NOTE | 2020-08-06 09:32 | NUR ---
08/06/20 0840 PT RESTING EYES CLOSED RESP EVEN NONLABORED EASILY AROUSED.PT BRIEF CHANGED CLEAR URINE NO ODOR.EMPTIED 200ML YELLOW URINE FROM URINAL.SET UP FOR BREAKFAST.NO C/O VOICED. 08/06/20924 THERAPY PRESENT IN ROOM TO ASSIST PT WHEELCHAIR.CC
--- NOTE | 2020-08-06 11:01 | NUR ---
08/06/20 1100 AWAKE WATCHING T.V. PT C/O OF HIP PAIN PATCHES APPLIED THIS AM.PT REQUESTING TO SPEAK TO DOCTOR THIS MORNING. MAKING ROUNDS.
--- NOTE | 2020-08-06 14:18 | NUR ---
CALLED BACK TO FOLLOW UP WITH DR RAMIREZ OFFICE. THE PRODUCTION CONTROL SUPERVISOR SAID THAT DR RAMIREZ IS ONLY THERE A COUPLE OF DAYS A WEEK AND THAT THEY LEFT TODAY AT 1130. I EXPLAINED THAT I HAD LEFT A VOICE MAIL FOR THE NURSE THIS MORNING, BUT HAD NOT HAD A RETURN PHONE CALL. I EXPLAINED I WAS NEEDING TO GET AN APPOINTMENT FOR MR. DEL CASTILLO TO SEE DR RAMIREZ. DUE TO IT BEING AN INJECTION THE NURSE HAD TO DO THE SCHEDULING. THE PRODUCTION CONTROL SUPERVISOR TOOK A NOTE TO LEAVE ON NATHAN (THE NURSE) DESK SO SHE WOULD SEE IT FIRST THING SUNDAY MORNING. DR RAMIREZ AND NATHAN ARE IN THE OFFICE ON SUNDAY.
[2020-08-06 20:00] VITALS: BP 100/54; TEMP 98.5
--- NOTE | 2020-08-06 20:20 | NUR ---
PT AWAKE WITH NO S/S OF DISTRESS OR PAIN NOTED, RESP RATE NONLABORED, ON ROOM AIR, SKIN WARM AND DRY. TALKATIVE WITH LIFE SKILLS COORDINATOR VOLUNTEER AND SEEMS TO BE IN A GOOD MOOD. ASSISTED PT TO FIND CHANNEL ON TV, DENIES ANY NEEDS AT THIS TIME, RAILS UP, BED IN LOW POSITION, CALL LIGHT AND URINAL WITHIN PT'S REACH, ENCOURAGED TO CALL NEEDED.
--- NOTE | 2020-08-06 21:32 | NUR ---
GAVE PT MIRALAX 17G IN WATER PO PRN PER PT REQUEST FOR CONSTIPATION. NO DISTRESS NOTED. PT DRINKING MED IN WATER WITH SOME HELP DUE TO TREMORS OF HANDS.
--- NOTE | 2020-08-06 23:00 | NUR ---
AWAKE WATCHING TV WITH NO DISTRESS NOTED, PT DENIES ANY NEEDS OR PROBLEMS, WILL MONITOR CLOSELY, RAILS UP, BED IN LOW POSITION, CALL LIGHT IN REACH.
--- NOTE | 2020-08-07 00:50 | NUR ---
PT AWAKE LAYING IN BED WATCHING TV WITH NO S/S OF DISTRESS NOTED, DENIES ANY PROBLEMS OR NEEDS, RESP RATE NONLABORED, WILL MONITOR CLOSELY, RAILS UP, BED IN LOW POSITION, CALL LIGHT AND URINAL WITHIN PT'S REACH, ENCOURAGED TO CALL NEEDED.
--- NOTE | 2020-08-07 01:35 | NUR ---
CALL LIGHT ANSWERED. PT FOUND AWAKE AND ORIENTED LAYING IN BED WATCHING TV WWITH NO ACUTE DISTRESS NOTED. STATES HE CAN NOT SLEEP BECAUSE HE "SLEPT ALL DAMN DAY". PT TALKATIVE WITH PRODUCTION MECHANIC TIN CANS. C/O CONSTANT PAIN TO L LEG THAT IS "ABOUT A 4 OR 5" ON SCALE REQUESTS SOMETHING FOR PAIN. 3316 PRODUCTION MECHANIC TIN CANS GAVE PT TRAMADOL 50MG PO PRN FOR PAIN, PT TAKES MEDS WITH LITTLE ASSIST. ENCOURAGED PT TO REPOSITION IN BED OFTEN AND OFFERED TO REPOSITION PT BUT PT STATES HE IS OKAY. WILL MONITOR CLOSELY, RAILS UP, BED IN LOW POSITION, CALL LIGHT IN REACH, ENCOURAGED TO CALL NEEDED.
--- NOTE | 2020-08-07 02:10 | NUR ---
PT FOUND RESTING WITH EYES CLOSED, NO S/S OF PAIN OR DISTRESS NOTED, RESP RATE NONLABORED, URINAL WITHIN PT'S REACH, WILL MONITOR CLOSELY, RAILS UP, BED IN LOW POSITION, CALL LIGHT IN REACH.
--- NOTE | 2020-08-07 04:45 | NUR ---
RESTING WITH EYES CLOSED, NO S/S OF PAIN OR DISTRESS NOTED, WILL MONITOR CLOSELY, RAILS UP, BED IN LOW POSITION, CALL LIGHT AND URINAL WITHIN PT'S REACH.
[2020-08-07 08:00] VITALS: BP 120/60; TEMP 97.6
--- NOTE | 2020-08-07 13:13 | NUR ---
I met with patient on and he is on a Mechanical Soft 2 gram Na 1800 Claoie ADA diet plan and she wants Regular chicken noodle soup for both lunch and dinner meals and I added and he also wants all Regular food and wants to sign a dietary refusal form as well and wants all regular foods and soups. I communicated all to the ward aide to add to the card and Nell on the Dietary Refusal form and to NERISSA Medina about as well. He had no complaints except he wants regular chicken noodle soup with luncha nd dinner or supper meals- all meals. I also attended the IDT meeting at 2:30.
[2020-08-07 20:00] VITALS: BP 124/72; TEMP 97.9
[2020-08-08 08:00] VITALS: BP 126/59; TEMP 98.3
[2020-08-08 20:00] VITALS: BP 108/55; TEMP 97.6
--- NOTE | 2020-08-08 21:25 | NUR ---
PT AWAKE WATCHING TV WITH NO S/S OF DISTRESS NOTED, DENIES ANY PAIN OR PROBLEMS, TALKATIVE WITH WEBLOGIC ADMINISTRATOR, RESP RATE NONLABORED, URINAL WITHIN PT'S REACH. PT GIVEN NIGHTLY MEDS WITH SOME ASSIST HOLDING DRINK DUE TO PT HAS TREMORS AT TIMES. TOOK ALL MEDS WHOLE. STATES HE DOES NOT NEED ANY PAIN MEDICATION. PT ASKING IF DR. CRUZ WAS STILL HERE INFORMED PT THAT SHE LEAVES AT 1900. WILL MONITOR CLOSELY, RAILS UP, BED IN LOW POSITON,M CALL LIGHT IN REACH.
--- NOTE | 2020-08-09 00:08 | NUR ---
AWAKE WATCHING TV WITH NO DISTRESS NOTED, DENIES ANY NEEDS JUST STATES HE HAS NOT BEEN ABLE TO FALL ASLEEP YET. PT TALKATIVE WITH AIR PLANT ENGINEER, WILL MONITOR CLOSELY, RAILS UP, BED IN LOW POSITION, CALL LIGHT IN REACH, ENCOURAGED TO CALL NEEDED.
--- NOTE | 2020-08-09 03:28 | NUR ---
RESTING WITH EYES CLOSED, NO S/S OF PAIN OR DISTRESS NOTED, RESP RATE NONLABORED, ON ROOM AIR, URINAL WITHIN PT'S REACH, WILL MONITOR CLOSELY, RAILS UP, BED IN LOW POSITION, CALL LIGHT IN REACH.
--- NOTE | 2020-08-09 05:20 | NUR ---
RESTING WITH EYES CLOSED, NO DISTRESS NOTED, WILL MONITOR CLOSELY.
[2020-08-09 08:00] VITALS: BP 114/67; TEMP 98.1
--- NOTE | 2020-08-09 10:30 | NUR ---
PATIENT RESTING IN BED. PATIENT STATED TO PCT THAT HE WAS SUPPOSED TO HAVE AN APPOINTMENT AND THAT HE REFUSED TO WORK WITH THERAPY TODAY. BEVEL GEAR GENERATOR OPERATOR SPOKE TO PATIENT. PATIENT NOTIFIED THAT APPOINTMENT HAS NOT BEEN SCHEDULED YET. UR IS WAITING FOR SCHEDULING NURSE TO RETURN PHONE CALL WITH APPOINTMENT TIME. PATIENT STATED THAT HE WAS STILL REFUSING THERAPY AND PAIN MEDICATION.
--- NOTE | 2020-08-09 13:12 | NUR ---
PATIENT STATED THAT HE WOULD ONLY DO ARM EXERCISES TO OT. HE REFUSED TO GET OUT OF BED OR SIT ON THE SIDE OF THE BED TO EAT LUNCH.
--- NOTE | 2020-08-09 14:20 | NUR ---
PATIENT REFUSED PT AT THIS TIME. PATIENT OFFERED PAIN MEDICATION. PT REFUSED. CHARGE NURSE NOTIFIED.
--- NOTE | 2020-08-09 14:52 | NUR ---
SPOKE WITH NATHAN AT DR RAMIREZ OFFICE CONCERNING THE APPOINTMENT FOR INJECTION. NATHAN IS GOING TO SPEAK WITH SAMANTA AND/OR DR RAMIREZ CONCERNING THE BILATERAL INJECTIONS TO THE HIPS. SHE WILL CALL ME BACK SOON SHE HAS SOME ANSWERS AND IT CAN BE SCHEDULED. I ALSO SPOKE WITH JOHN YEYO THE PATIENTS DAUGHTER CONCERNING FOREIGN STUDENT ADVISER PLAN. MRS. LOPEZ SAID SHE AND HER SIBLINGS HAVE BEEN DISCUSSING FOREIGN STUDENT ADVISER CARE PLACEMENT DUE TO THE PATIENT NOT BEING ABLE TO WALK AND THEY ALL WORK AND ARE UNABLE TO PROVIDE CARE AROUND THE CLOCK. WANTED TO DISCUSS IT AGAIN WITH HER SIBLINGS AND CALL BACK WITH A FINAL ANSWER.
--- NOTE | 2020-08-09 15:16 | NUR ---
DISCUSSED APPOINTMENT WITH GRISEL IN UR. STILL WAITING FOR AN APPOINTMENT. SPOKE WITH ALVARO FERNÁNDEZ, SWINGBED COORDINATOR. NOTIFIED HER OF PATIENT REFUSING THERAPY. SHE STATED THAT SHE WOULD TALK WITH PATIENT. FAMILY DISCUSSING OPTION OF TRANSFERRING TO A SHELTER.
--- NOTE | 2020-08-09 15:46 | NUR ---
OT AT BEDSIDE. PATIENT PARTICIPATED IN ARM EXERCISES. PATIENT TOLERATED WELL.
--- NOTE | 2020-08-09 15:48 | NUR ---
PCT AT BEDSIDE TO BATHE PATIENT.
[2020-08-09 19:52] VITALS: BP 120/62; TEMP 98.1
[2020-08-10 08:00] VITALS: BP 116/66; TEMP 97.9
--- NOTE | 2020-08-10 08:00 | NUR ---
PATIENT RESTING IN BED. NAD NOTED. PATIENT SLEEPING AT THIS TIME.
--- NOTE | 2020-08-10 09:00 | NUR ---
PATIENT ENCOURAGED TO PULL SELF UP IN BED. PATIENT ABLE TO PULL SELF UP WITH HOB LOWERED IN [place]. PATIENT GOWN AND SHEET CHANGED. PT REFUSED A BLANKET. PT PLACED IN LOW FOWLERS.
--- NOTE | 2020-08-10 09:27 | NUR ---
MRS.SHARON ORONA (DAUGHTER) CALLED TO DISCUSS PLAN OF CARE ON . SHE HAS SPOKE WITH HER BROTHER AND SISTER CONCERNING THEIR DAD. THEY HAVE ALL AGREED THAT IT IS IN THE BEST INTEREST OF THEIR DAD AT THIS TIME TO [facility]. THEY ARE UNABLE TO PROVIDE THE TYPE OF CARE HE IS REQUIRING AT THIS TIME.
--- NOTE | 2020-08-10 13:30 | NUR ---
PATIENT DAUGHTER SPOKE WITH PATIENT AND ENCOURAGE PATIENT TO PARTICIPATE IN THERAPY. THERAPY NOTIFIED AND ASKED WAREHOUSE ANALYST TO GIVE PATIENT PAIN MEDICATION BEFORE.
--- NOTE | 2020-08-10 13:45 | NUR ---
PRN PAIN MEDICATION PROVIDED TO PATIENT. THERAPY TO RETURN.
--- NOTE | 2020-08-10 15:08 | NUR ---
Called Dr. James's office to follow up with Dr. Rip Umana' nurse regarding re-scheduling appointment for bilateral hip injections. Mr. Mendoza missed his previously scheduled appointment with Dr. Erwin in June 2020 as he was hospitalized. Brenda at Dr. Erwin' office stated that Lyndsay is out of the office today, will hopefully return tomorrow. She is the only one that can schedule the appointment as it has to be placed on the operating room schedule at [facility] under fluoro guidance. Brenda stated that this injection is only done there as Mr. Menodza may have to be put to sleep in order to tolerate the injections.
[2020-08-10 19:58] VITALS: BP 108/55; TEMP 97.7
[2020-08-11 08:00] VITALS: BP 111/63; TEMP 97.9
--- NOTE | 2020-08-11 14:55 | NUR ---
Observed patient working with therapists earlier today. Therapist reported that patient is transferring easier than he was. Also reported that he was able to stand 10 minutes today, improving from 7 minutes yesterday. Provided encouragement and praise to Mr. Mendoza for his efforts. Mr. Mendoza stated his goal is to return home to live rather than go to a halfway care center. Mr. Mendoza asked if Dr. Erwin' office had called with an appointment yet for him to get bilateral hip injections like he did in November. Mr. Mendoza stated that thos injections really helped his arthritis pain and he was able to do so much more when his leg didn't bother him so bad. He is eager to have them done again, expecting that he will be able to participate in therapy better. Advised that nursing staff has been calling Dr. Erwin every day starting last week trying to get the appointment scheduled as soon as possible, but we have to wait for them to give us an appointment time. Mr. Mendoza stated that he even had his son trying to call too, but Dr. Erwin has not return his son's call yet.
--- NOTE | 2020-08-11 15:33 | NUR ---
14:[address] Erwin office, no answer. Left message to please call regarding appointment for patient.
--- NOTE | 2020-08-11 15:59 | NUR ---
PT USED ESTIM ON PATIENT LT UPPER LEG, PT STATES "MY LEG FEELS MUCH BETTER," PT TOLERATED TREATMENT WELL, NAD NOTED
--- NOTE | 2020-08-11 17:24 | NUR ---
14:[address] Erwin' office. Explained to impact hammer operator that our center had been trying to get an appointment for one of our patients re-scheduled for quite some time now, but we had been unsuccessful in doing so. Requested that impact hammer operator help us connect with Lyndsay, Dr. Erwin' nurse. Lyndsay answered. After introductions, asked Lyndsay if she had been able to get Mr. Mendoza rescheduled for his bilateral hip injections. Lyndsay stated that she had been trying to get the appointment scheduled since last week. She stated she did ask the PA last week in the hopes that he would approve the injections and she could go ahead and schedule them, but the PA denied approval. Lyndsay told the PA at that time that she was going to ask Dr. Erwin if he would approve the injections since he is the one doing them. Lyndsay has not been able to speak to Dr. Erwin yet due to his appointments at the clinic and he is in surgery [address] Erwin is expected to be back at the clinic tomorrow and Lyndsay said she would call our center tomorrow and let us know if he has approved the injections or not. Asked Lyndsay if she had the number here, and Lyndsay laughed. "I have at least 5 different extensions listed here from [place] where all you guys have been trying to call for Mr. Mendoza, including one from your Dr. Meade. I didn't want to call you guys and say that he was denied until I asked Dr. Erwin himself because Mr. Mendoza has told us in the past that those injections really help him. He is not a surgical candidate, so if these injections are no longer an option for him the only other thing that we can suggest is half-way pain management. Explained to Lyndsay that Mr. Mendoza has previously lived at home alone and that his goal was to return to same. Currently he is unable to do so, but Mr. Mendoza believes if he could get those injections, he would be able to rehab successfully and return home like he has during previous [facility] stays. Explained that Mr. Mendoza stated he has been seeing Dr. Erwin for 30 years and he wanted to send him a message that "I need to see him now!" Explained that if Mr. Mendoza was unable to regain his prior level of function, then he would most likely be placed in half-way care as his family is unable to provide 24/7 care for him at home. Lyndsay verbalized understanding and plans to call tomorrow.
[2020-08-11 20:00] VITALS: BP 118/54; TEMP 97.9
--- NOTE | 2020-08-12 03:05 | NUR ---
Pt called to the nurses station and requested something to help him go to sleep. When this nurse went to the room to see pt, he stated, "that he wanted to take the prn, tylenol, po, because he thought that may help his leg pain that was only hurting a little at this time, and help him fall off to sleep. Pt was offered prn, tramadol, but refused it. No acute distress noted. Call light is within reach and bed alarm is set. Will continue to monitor.
--- NOTE | 2020-08-12 05:46 | NUR ---
Patient is resting with eyes closed at this time. Assisted with being turned repositioned, check, and changed frequently. Pt is incontient of bowel, and wears disposable briefs, but is able to use the urinal independently or with assistance. Pt is able to eat independently, but has to have assisttance with holding po fluids d/t shaking of hands. Takes his po meds whole with no distress noted. Redness noted to buttocks, and barrier cream is being applied, with each incont. episode, and prn. No acute distress noted. Call light is within reach, and bed alarm is set.
[2020-08-27 11:00] LABS: POTASSIUM 4.4 mmol/L (3.6-5.2)
[2020-08-27 11:01] LABS: PLATELET COUNT 513 K/uL (142-355)
== END 2020-08-17 11:20 | DRG 872 ==
LOC: MED/SURG 16:00
PROVIDERS: ADMIT Internal Medicine; ATTEND Internal Medicine
DX: A41.02 Sepsis due to Methicillin resistant Staphylococcus aureus (principal); L03.115 Cellulitis of right lower limb; Z91.81 History of falling; R53.81 Other malaise; E11.9 Type 2 diabetes mellitus without complications; M25.552 Pain in left hip; M54.5 Low back pain; M16.0 Bilateral primary osteoarthritis of hip; N18.32 Chronic kidney disease, stage 3b; I12.9 Hypertensive chronic kidney disease with stage 1 through stage 4 chronic kidney disease, or unspecified chronic kidney disease; E44.0 Moderate protein-calorie malnutrition; F41.9 Anxiety disorder, unspecified; R26.2 Difficulty in walking, not elsewhere classified; E78.5 Hyperlipidemia, unspecified; F32.9 Major depressive disorder, single episode, unspecified; M62.81 Muscle weakness (generalized); Z74.1 Need for assistance with personal care; G20 Parkinson's disease; I73.9 Peripheral vascular disease, unspecified
CPT/HCPCS: 36415; 80048; 85027; 87081; 94760; G0283-GP

== ENCOUNTER 2020-08-17 11:00 | Inpatient (IN) | payer OTHER | END 2020-08-26 08:00 | disposition still patient (30) | LOC: PAVC 11:00 | PROVIDERS: ADMIT Internal Medicine; ATTEND Internal Medicine ==

== ENCOUNTER 2020-08-18 07:00 | Outpatient (CLI) | payer OTHER ==
[2020-08-30 05:42] LABS: POTASSIUM 4.8 mmol/L (3.6-5.2)
[2020-08-30 05:44] LABS: PLATELET COUNT 480 K/uL (142-355)
== END 2020-08-18 17:00 | disposition home or self-care (01) ==
LOC: LAB 07:00
PROVIDERS: ATTEND Internal Medicine
DX: G20 Parkinson's disease (principal); E11.9 Type 2 diabetes mellitus without complications; E66.9 Obesity, unspecified; E78.49 Other hyperlipidemia
CPT/HCPCS: 36415; 80053; 80061; 82306; 82728; 83036; 83540; 84153; 84443; 85027; 87081

== ENCOUNTER 2020-08-26 09:00 | Inpatient (IN) | payer OTHER | END 2020-09-07 16:30 | disposition short-term general hospital (02) | LOC: PAVC 09:00 | PROVIDERS: ADMIT Internal Medicine; ATTEND Internal Medicine ==

== ENCOUNTER 2020-09-01 09:43 | Outpatient (CLI) | payer OTHER | END 2020-09-01 22:12 | disposition home or self-care (01) | LOC: RAD 09:43 → MRI 09:43 | PROVIDERS: ATTEND Internal Medicine | DX: M54.16 Radiculopathy, lumbar region (principal) ==